=== PATIENT | female | born 1945 | race Caucasian/White ===

== ENCOUNTER 2018-04-06 22:33 | Emergency (ER) | payer MEDICARE, OTHER ==
[2018-04-06 23:22] LABS: BILIRUBIN,URINE NEGATIVE (NEG); CLARITY,URINE CLEAR; COLOR,URINE YELLOW; GLUCOSE,URINE NEGATIVE (NEG); NITRITE,URINE POSITIVE (NEG); PH,URINE 7.5; PROTEIN,URINE 30 mg/dL (NEG-TRACE); UROBILINOGEN,URINE 0.2 mg/dL (0.2 mg/dL)
[2018-04-06 23:31] LABS: BACTERIA,URINE MODERATE /HPF (0-FEW); RBC,URINE OCC /HPF (0-2)
[2018-04-07] MEDS: NITROFURANTOIN MONOHYD/M-CRYST 100 MG CAPSULE. PO (00:30)
== END 2018-04-07 02:15 | disposition home or self-care (01) ==
LOC: ER 04-07 02:15
DX: N39.0 Urinary tract infection, site not specified (principal); I10 Essential (primary) hypertension; K21.9 Gastro-esophageal reflux disease without esophagitis; J44.9 Chronic obstructive pulmonary disease, unspecified; E11.9 Type 2 diabetes mellitus without complications; E78.00 Pure hypercholesterolemia, unspecified; Z90.710 Acquired absence of both cervix and uterus; Z90.49 Acquired absence of other specified parts of digestive tract; Z93.1 Gastrostomy status; Z88.8 Allergy status to other drugs, medicaments and biological substances
CPT/HCPCS: 81001; 99284

== ENCOUNTER 2018-05-01 08:53 | Emergency (ER) | payer MEDICARE, OTHER | END 2018-05-01 10:25 | disposition short-term general hospital (02) | LOC: ER 08:53 | DX: J95.03 Malfunction of tracheostomy stoma (principal); J44.9 Chronic obstructive pulmonary disease, unspecified; K21.9 Gastro-esophageal reflux disease without esophagitis; I10 Essential (primary) hypertension; E78.00 Pure hypercholesterolemia, unspecified; E11.9 Type 2 diabetes mellitus without complications; Z90.49 Acquired absence of other specified parts of digestive tract; Z90.710 Acquired absence of both cervix and uterus; Z93.1 Gastrostomy status; E66.01 Morbid (severe) obesity due to excess calories; Z68.41 Body mass index [BMI] 40.0-44.9, adult; Z88.1 Allergy status to other antibiotic agents; Z88.8 Allergy status to other drugs, medicaments and biological substances; Z91.041 Radiographic dye allergy status; Y83.8 Other surgical procedures as the cause of abnormal reaction of the patient, or of later complication, without mention of misadventure at the time of the procedure; Y92.89 Other specified places as the place of occurrence of the external cause | CPT/HCPCS: 99285; 99285-25 ==

== ENCOUNTER 2018-05-01 10:39 | Emergency (ER) | payer MEDICARE, OTHER ==
[~2018-05-01] VITALS: Ht 162.6 cm; Wt 108.0 kg
[~2018-05-01 10:39] MED LIST: ALBU2.5V5 NEB; ATOR40TA59 PO; CARV3.122 PO; CLOP75TA57 PO; FLUT9.9S NS; GABA-585 PO; INSU100C SQ; INSU100I13 SQ; ISOS20TA4 PO; LEVO500T59 IV; MICO113C TP; NITR0.4T22 SL; NITR100C62 PO; PROPOFOL IV; QUET25TA5 PO; TEMA15CA PO; TRAM50TA PO; TRAZ-85 PO; VANC500V IV; VENL37.56 PO; VITA0.4T4 PO; [UNRECOGNIZED DRUG - CODE] IV
[2018-05-01 10:47] VITALS: BP 130/58
--- NOTE | 2018-05-01 10:52 | PHYS DOC ---
Past Medical History Past Medical History: Angina, Anxiety, COPD, Depression, Diabetes-Type II, Fibromyalgia, GERD, High Cholesterol, Hypertension, Other Additional Past Medical Histor: Morbid Obesity, Tracheostomy, Gastrostomy, Sleep Apnea, Encephalopathy, Past Surgical History: Cholecystectomy, , Hysterectomy Additional Past Surgical Histo: Tracheostomy, Gastrostomy, Naval removed, exploratory surgery Alcohol Use: None Drug Use: None Adult General Chief Complaint Chief Complaint: OTHER COMPLAINTS HPI HPI Patient is a 72 year old F who presents with displaced trach. She was initially transferred to [place] from our facility per her request. She was in the ambulance and requested that they turn around and come back. Now that she is here she states that she wants her trach replaced and she wants nothing else done. She does not even want to get off the ambulance stretcher. She wants to go back to the [facility]. Review of Systems Review of Systems does not cooperate All other systems were reviewed and found to be within normal limits, except as documented in this note. Current Medications Current Medications Current Medications Medications (Trade) Dose Ordered Sig/Jonn Start Time Stop Time Status Last Admin Dose Admin Albuterol Sulfate (Ventolin Neb Soln) 2.5 mg STK-MED ONCE 05/01/18 11:04 05/01/18 11:05 DC Prednisone (Prednisone) 60 mg 1X ONCE 05/01/18 11:30 05/01/18 11:31 DC 05/01/18 11:25 60 MG Allergies Allergies Allergies Coded Allergies Type Severity Reaction Last Updated Verified Cephalosporins Allergy Intermediate 12/10/17 Yes atropine Allergy Intermediate 12/10/17 Yes belladonna alkaloids Allergy Intermediate 12/10/17 Yes metformin Allergy Intermediate 12/10/17 Yes scopolamine Allergy Intermediate 12/10/17 Yes I S O L A T I O N *CONTACT* Allergy Unknown 03/25/18 Yes Physical Exam Physical Exam Constitutional: Well developed, well nourished, no acute distress, non-toxic appearance. HENT: Normocephalic, atraumatic, bilateral external ears normal, oropharynx moist, no oral exudates, nose normal. Eyes: PERRLA, EOMI, conjunctiva normal, no discharge. Neck: Normal range of motion, no tenderness, supple, no stridor. Cardiovascular:Heart rate regular rhythm, no murmur Lungs & Thorax: Bilateral breath sounds clear to auscultation Abdomen: Bowel sounds normal, soft, no tenderness, no masses, no pulsatile masses. Skin: Warm, dry, no erythema, no rash. Back: No tenderness, no CVA tenderness. Extremities: No tenderness, no cyanosis, no clubbing, ROM intact, no edema. Neurologic: Alert and oriented X 3, normal motor function, normal sensory function, no focal deficits noted. Current Patient Data Vital Signs Vital Signs Date Time Temp Pulse Resp B/P (MAP) Pulse Ox O2 Delivery O2 Flow Rate FiO2 05/01/18 10:47 97.9 82 22 130/58 (82) 95 Tracheal Collar 5.0 97.9 Radiology/Procedures Radiology/Procedures PATIENT: APOLINAR MARQUIS ACCOUNT: [id number] : 1945 LOCATION: ER AGE: 72 SEX: F EXAM STATUS: REG ER ORD. PHYSICIAN: DORY PERKINS MD REASON: dyspnea, trach replacement PROCEDURE: CHEST AP ONLY CHEST AP ONLY Clinical Indication: SOB, dyspnea, trach replacement Comparison: AP chest April 02, 2018. Findings: There is tracheostomy, tip is about 5.2 cm superior to the olivia. There is pneumomediastinum. Cardiac size is normal. Mild left basilar atelectasis or scarring. There is no pneumothorax. No pleural effusion is appreciated. Advanced degenerative arthropathy of the shoulders. IMPRESSION: 1. Pneumomediastinum. Finding probably iatrogenic if the tracheostomy is being manipulated. 2. Mild left basilar atelectasis or scarring. Electronically signed by: Alen Thomas MD (05/01/2018 11:26 AM) [id number] DICTATED and SIGNED BY: ALEN THOMAS MD DATE: 05/01/18 1123 PATIENT: APOLINAR MARQUIS ACCOUNT: [id number] : 1945 LOCATION: ER AGE: 72 SEX: F EXAM STATUS: DEP ER ORD. PHYSICIAN: DORY PERKINS MD REASON: re positioned trach placement PROCEDURE: CHEST AP ONLY Examination: Single frontal view of the chest HISTORY: History of tracheostomy repositioning COMPARISON: Same day exam and 50 7:00 AM FINDINGS: Examination is limited due to positioning. The tracheostomy tip appears to project within the right portion of the trachea just below the level of the clavicles. There is a streaky linear density identified in the mediastinum suspicious for pneumomediastinum. There is a large left-sided pneumothorax identified compressing the left lung. There is some shift of the mediastinum to the right. Soft tissue emphysema identified about the right neck region. IMPRESSION: 1. Large left-sided pneumothorax causing mild compression of the left lung. There is some shift of the mediastinum to the right. 2. Streaky densities identified in the mediastinum likely pneumomediastinum. Report was called to Dr. Perkins at time of dictation. Electronically signed by: Kevin House MD (05/01/2018 11:34 AM) [facility] Course & Med Decision Making Course & Med Decision Making Pertinent Labs and Imaging studies reviewed. (See chart for details) 72 y/o F presents for displaced trach, initially req txf to [place], she is awake , alert, oriented, capable to make these decisions. She is now willing to have her trach replaced here. However she does not even want to get off the ambulance stretcher, she wants to go back as soon as possible. Pt is yelling and cussing at staff. She requests discharge home. She declines any further workup. Trach replaced by RT. Fernando given. Pt discharged with EMS. Immediately after discharge radiology called to report ptx on her 2nd cxr. She had two xrays, the first xray read: pneumoediastinum likely related to trach manipulation, no pneumthorax. Second xray shows left ptx and pneumomediastinum. (see above for details). Pt was brought immediately back into the ED. Dragon Disclaimer Dragon Disclaimer This electronic medical record was generated, in whole or in part, using a voice recognition dictation system. Departure Departure Impression: Primary Impression: Chronic respiratory failure Disposition: 05 TRANSFER OTHER Condition: IMPROVED Referrals: JAIR MAHARAJ MD (PCP) DORY PERKINS MD May 01, 2018 10:52
[2018-05-01] MEDS ORDERED: ALBUTEROL SULFATE 2.5 MG/3 ML NEBU. ONE (11:04)
[2018-05-01] MEDS ORDERED: ALBUTEROL SULFATE 2.5 MG/3 ML NEBU. NEB ONE (11:15)
--- NOTE | 2018-05-01 11:29 | RAD ---
CHEST AP ONLY Clinical Indication: SOB, dyspnea, trach replacement Comparison: AP chest April 02, 2018. Findings: There is tracheostomy, tip is about 5.2 cm superior to the olivia. There is pneumomediastinum. Cardiac size is normal. Mild left basilar atelectasis or scarring. There is no pneumothorax. No pleural effusion is appreciated. Advanced degenerative arthropathy of the shoulders. IMPRESSION: 1. Pneumomediastinum. Finding probably iatrogenic if the tracheostomy is being manipulated. 2. Mild left basilar atelectasis or scarring. Electronically signed by: Alen Thoams MD (05/01/2018 11:26 AM) [id number]
[2018-05-01] MEDS ORDERED: predniSONE 20 MG TABLET PO ONE (11:30)
--- NOTE | 2018-05-01 11:38 | RAD ---
Examination: Single frontal view of the chest HISTORY: History of tracheostomy repositioning COMPARISON: Same day exam and 50 7:00 AM FINDINGS: Examination is limited due to positioning. The tracheostomy tip appears to project within the right portion of the trachea just below the level of the clavicles. There is a streaky linear density identified in the mediastinum suspicious for pneumomediastinum. There is a large left-sided pneumothorax identified compressing the left lung. There is some shift of the mediastinum to the right. Soft tissue emphysema identified about the right neck region. IMPRESSION: 1. Large left-sided pneumothorax causing mild compression of the left lung. There is some shift of the mediastinum to the right. 2. Streaky densities identified in the mediastinum likely pneumomediastinum. Report was called to Dr. Kaufman at time of dictation. Electronically signed by: Kevin House MD (05/01/2018 11:34 AM) [facility]
[2018-05-01] MEDS ORDERED: OMEP20TA63 PO (15:49)
[2018-05-01] MEDS ORDERED: MICO45CR VG (15:49)
[2018-05-01] MEDS ORDERED: POLY17PO29 PO (15:49)
[2018-05-01] MEDS ORDERED: ZOLP6.252 PO (15:49)
[2018-05-01] MEDS ORDERED: ATOR40TA59 PO (15:49)
[2018-05-01] MEDS ORDERED: ACET325S PEG (15:49)
[2018-05-01] MEDS ORDERED: ISOS20TA4 PO (15:49)
[2018-05-01] MEDS ORDERED: QUET25TA5 PO (15:49)
[2018-05-01] MEDS ORDERED: CLOP75TA PO (15:49)
[2018-05-01] MEDS ORDERED: LORA0.5T PO (15:49)
[2018-05-01] MEDS ORDERED: NYST15CR2 TP (15:49)
[2018-05-01] MEDS ORDERED: DOCU100C28 PEG (15:49)
[2018-05-01] MEDS ORDERED: TRAM50TA PO (15:49)
[2018-05-01] MEDS ORDERED: DICL100G18 TP (15:49)
[2018-05-01] MEDS ORDERED: NITR0.3T5 SL (15:49)
[2018-05-01] MEDS ORDERED: GABA-585 PO (15:49)
[2018-05-01] MEDS ORDERED: CARV3.122 PO (15:49)
[2018-05-01] MEDS ORDERED: INSU100I13 SQ (15:49)
[2018-05-01] MEDS ORDERED: VENL75TA PO (15:49)
[2018-05-01] MEDS ORDERED: GUAI473L15 PO (15:49)
== END 2018-05-01 11:31 | disposition short-term general hospital (02) ==
LOC: ER 10:39
DX: J95.03 Malfunction of tracheostomy stoma (principal); I10 Essential (primary) hypertension; E78.00 Pure hypercholesterolemia, unspecified; E11.9 Type 2 diabetes mellitus without complications; J44.9 Chronic obstructive pulmonary disease, unspecified; K21.9 Gastro-esophageal reflux disease without esophagitis; Z93.1 Gastrostomy status; Z88.5 Allergy status to narcotic agent; Z91.041 Radiographic dye allergy status; Z88.8 Allergy status to other drugs, medicaments and biological substances; Y84.8 Other medical procedures as the cause of abnormal reaction of the patient, or of later complication, without mention of misadventure at the time of the procedure; Y82.8 Other medical devices associated with adverse incidents; Y92.89 Other specified places as the place of occurrence of the external cause
CPT/HCPCS: 99285; J7512; J7613; 31502; 71045; 94640

== ENCOUNTER 2018-05-01 11:39 | Inpatient (IN) | payer MEDICARE, OTHER ==
[~2018-05-01] VITALS: Ht 162.6 cm; Wt 118.8 kg
[2018-05-01] VITALS (9 sets, daily range): BP systolic 99–140; BP diastolic 48–78
--- NOTE | 2018-05-01 11:47 | PHYS DOC ---
Past Medical History Past Medical History: Angina, Anxiety, COPD, Depression, Diabetes-Type II, Fibromyalgia, GERD, High Cholesterol, Hypertension, Other Additional Past Medical Histor: Morbid Obesity, Tracheostomy, Gastrostomy, Sleep Apnea, Encephalopathy, Past Surgical History: Cholecystectomy, , Hysterectomy Additional Past Surgical Histo: Tracheostomy, Gastrostomy, Naval removed, exploratory surgery Alcohol Use: None Drug Use: None Adult General HPI HPI Patient is a 72 year old female who presents for left pneumothorax. Pt was initially here and requested transfer to [place] and then returned to the ER. She had her trach replaced and a chest xray was done. She was discharged back to [place] (per her request, she refused further treatment) and then second chest xray was reviewed and showed a left pneumothorax. Pt complains of back pain. Denies distress. Review of Systems Review of Systems Constitutional: Denies fever or chills Eyes: Denies change in visual acuity, redness, or eye pain HENT: Denies nasal congestion or sore throat Respiratory: Denies cough or shortness of breath Cardiovascular: No additional information not addressed in HPI GI: Denies abdominal pain, nausea, vomiting, bloody stools or diarrhea : Denies dysuria or hematuria Musculoskeletal: Denies back pain or joint pain Integument: Denies rash or skin lesions Neurologic: Denies headache, focal weakness or sensory changes All other systems were reviewed and found to be within normal limits, except as documented in this note. Current Medications Current Medications Allergies Allergies Allergies Coded Allergies Type Severity Reaction Last Updated Verified Cephalosporins Allergy Intermediate 12/10/17 Yes atropine Allergy Intermediate 12/10/17 Yes belladonna alkaloids Allergy Intermediate 12/10/17 Yes metformin Allergy Intermediate 12/10/17 Yes scopolamine Allergy Intermediate 12/10/17 Yes I S O L A T I O N *CONTACT* Allergy Unknown 03/25/18 Yes Physical Exam Physical Exam Constitutional: Well developed, well nourished, no acute distress, non-toxic appearance. HENT: Normocephalic, atraumatic, bilateral external ears normal, oropharynx moist, no oral exudates, nose normal. Eyes: PERRLA, EOMI, conjunctiva normal, no discharge. Neck: Normal range of motion, no tenderness, supple, no stridor. Cardiovascular:Heart rate regular rhythm, no murmur Lungs & Thorax: Bilateral breath sounds clear to auscultation Abdomen: Bowel sounds normal, soft, no tenderness, no masses, no pulsatile masses. Skin: Warm, dry, no erythema, no rash. Back: No tenderness, no CVA tenderness. Extremities: No tenderness, no cyanosis, no clubbing, ROM intact, no edema. Neurologic: Alert and oriented X 3, normal motor function, normal sensory function, no focal deficits noted. Radiology/Procedures Radiology/Procedures PATIENT: APOLINAR MARQUIS ACCOUNT: [id number] : 1945 LOCATION: ER AGE: 72 SEX: F EXAM STATUS: DEP ER ORD. PHYSICIAN: DORY PERKINS MD REASON: re positioned trach placement PROCEDURE: CHEST AP ONLY Examination: Single frontal view of the chest HISTORY: History of tracheostomy repositioning COMPARISON: Same day exam and 50 7:00 AM FINDINGS: Examination is limited due to positioning. The tracheostomy tip appears to project within the right portion of the trachea just below the level of the clavicles. There is a streaky linear density identified in the mediastinum suspicious for pneumomediastinum. There is a large left-sided pneumothorax identified compressing the left lung. There is some shift of the mediastinum to the right. Soft tissue emphysema identified about the right neck region. IMPRESSION: 1. Large left-sided pneumothorax causing mild compression of the left lung. There is some shift of the mediastinum to the right. 2. Streaky densities identified in the mediastinum likely pneumomediastinum. Report was called to Dr. Perkins at time of dictation. Electronically signed by: Kevin House MD (05/01/2018 11:34 AM) [facility] Course & Med Decision Making Course & Med Decision Making Pertinent Labs and Imaging studies reviewed. (See chart for details) 72 y/o F presents for left ptx after trach replacement earlier. Pt had two xrays prior to discharge within 10 minutes, the first xray showed pneumomediastinum but was neg for ptx, second showed ptx. See xray read above. Pt was breathing against a slightly closed airway and refused trach placement for a prolonged period of time earlier and this is likely the cause of ptx. Her trach was replaced with some resistance by RT within the last hour. I consulted Dr. Serrano who agrees with evaluation and plan for chest tube. I discussed with Dr. Serrano the patient's history, physical exam, presentation, events of today, and imaging results; I also expressed my concern for tracheal perforation vs false tract. Xray does confirm tracheostomy tube within the trachea. He will evaluate the patient. Admit to ICU. Consulted Dr. Mast with [facility] for chest tube. Pt is in no distress, she is speaking clearly and in full sentences, she has no shortness of breath. She really has no complaints except her blankets are too heavy. Fentanyl ordered for patients chronic back and leg pain. I discussed results with patient and explained the need for a chest tube and admission. She verbalizes understanding. Dragon Disclaimer Dragon Disclaimer This electronic medical record was generated, in whole or in part, using a voice recognition dictation system. Departure Departure Referrals: JAIR MAHARAJ MD (PCP) DORY PERKINS MD May 01, 2018 11:47
[2018-05-01] MEDS ORDERED: ONDANSETRON PF 4 MG/2 ML VIAL. IV PRN (12:00)
[2018-05-01] MEDS ORDERED: fentaNYL PF VIAL 100 MCG/2 ML VIAL IM ONE (12:15)
[2018-05-01] MEDS ORDERED: ONDANSETRON PF 4 MG/2 ML VIAL. IV ONE (12:15)
[2018-05-01] MEDS ORDERED: LIDOCAINE WITH 8.4% SOD BICARB 3 ML DISP.SYRIN. ONE (12:34)
[2018-05-01] MEDS ORDERED: fentaNYL PF VIAL 100 MCG/2 ML VIAL IV ONE ×2 (12:45→15:00)
[2018-05-01] MEDS ORDERED: LIDOCAINE WITH 8.4% SOD BICARB 3 ML DISP.SYRIN. INJ ONE (14:15)
[2018-05-01 14:17] LABS: BASE EXCESS ABG -2 mmol/L (-3-3); HCO3 ABG 25 mmol/L (21-28); PCO2 ABG 51 mmHg (35-46); PO2 ABG 113 mmHg (65-108); SAT O2 ABG 97 % (92-99)
[2018-05-01 14:21] LABS: FIO2 ABG 36
--- NOTE | 2018-05-01 14:26 | PDOC ---
BRIEF OPERATIVE NOTE Pre-Op Diagnosis left pneumothorax Post-Op Diagnosis bilateral pnemothoraces, pneumomediastinum, malpositioned tracheostomy tube Procedure Performed CT left chest tube Surgeon Tarun Anesthesia Type: Local Findings 10F left chest tube. 1L air evacuated. Tracheostomy tube noted to be malpositioned into the anterior mediastinum. Pulmonary notify immediately Complications No immediate SHERRON SIMMONS MD May 01, 2018 14:26
--- NOTE | 2018-05-01 14:33 | RAD ---
Examination: Single frontal view the chest HISTORY: History of tracheostomy removal COMPARISON: 11:08 AM FINDINGS: Interval removal of tracheostomy tube. Pneumomediastinum is again identified. Soft tissue air identified in the neck and chest wall on the right identified. Left-sided pleural catheter is identified. There is interval decrease in left-sided pneumothorax.. Bibasilar lung airspace opacities likely atelectasis or infiltrates. IMPRESSION: 1. Interval placement of left-sided pleural catheter with decreased left pneumothorax. 2. Interval removal of tracheostomy tube. Pneumomediastinum is again identified. 3. Soft tissue emphysema identified in the neck and chest wall region. 4. Bibasilar linear airspace opacities likely atelectasis or infiltrates. Electronically signed by: Kevin House MD (05/01/2018 2:30 PM) [facility]
--- NOTE | 2018-05-01 15:02 | CONS ---
DATE OF CONSULTATION: 05/01/2018 ATTENDING PHYSICIAN: Dr. Stevens. REASON FOR CONSULTATION: Respiratory failure, dislodged tracheostomy tube, bilateral pneumothorax and pneumomediastinum. 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 She was brought into the Emergency Room earlier today after her tracheostomy tube was dislodged. She had no difficulty in breathing. The patient was adamant at not being seen by [facility] and wanted to be transferred to [facility]. In the ER, an attempt was made to replace the tracheostomy. Initially they did not have the Bivona trach and then a Shiley was placed. According to the respiratory therapist's note, they had to put more force to get the tracheostomy tube in. The patient was then transferred to [facility] per her request. However, during route she became more short of breath and as a result she was brought back by ambulance to our ER. A chest x-ray at that time was performed, in fact there were two x-rays and one of them showed a small left lower lobe pneumothorax and the second one was a moderate increase in the size of the pneumothorax. At that time, the ER physician had called me about the consult. I informed them that she would need a chest tube. They referred to IR for placement of the chest tube. I got a stat page from interventional suite that her tracheostomy tube was in the mediastinum and I looked at the CT chest and she had bilateral pneumothorax, more on the left than on the right. She has pneumomediastinum and her tracheostomy tube was in the mediastinum. I immediately arrived. I also called Dr. Hyatt, who is our thoracic surgeon, who immediately arrived as well to see if her trach needs to be replaced. However, we quickly did a bedside assessment and did not feel that she had any tracheal tear. The pneumomediastinum was likely caused by tracheostomy insertion in a false lumen. At that time, we decided that she would benefit from removal of the trach and she would not need any intervention for airway as she clinically seems to be stable. She did tolerate the removal of the trach well when we observed her and at that time from the IR suite we transferred her to ICU. A chest x-ray was reviewed by me after chest tube placement and the pneumothorax has significantly improved on the left side. PAST MEDICAL HISTORY: Significant for history of angina, anxiety, COPD, depression, type 2 diabetes, fibromyalgia, GERD, dyslipidemia, hypertension, history of prior cardiac arrest, history of cognitive dysfunction in the past. PAST SURGICAL HISTORY: Tracheostomy and gastrostomy tube. Cholecystectomy, and hysterectomy. ALLERGIES: CEPHALOSPORINS, ATROPINE, BELLADONNA, ALKALOIDS, METFORMIN AND SCOPOLAMINE. REVIEW OF SYSTEMS: Limited, but I obtained much of the history at the bedside. She has no recent cough, no chest pain, no headaches. No blurring of vision. No nausea, vomiting, no diarrhea. No dysuria. No skin rash. No focal weakness. MEDICATIONS: The medications given in the ER were reviewed as well. SOCIAL HISTORY: She smoked for about 25+ years, but quit 20 years ago. PHYSICAL EXAMINATION: GENERAL: After removal of the trach and placing on nasal cannula she appeared to be very comfortable. In no obvious respiratory distress. VITAL SIGNS: Blood pressure 130/58, pulse ox 95% on 5 liters. NECK: Supple. LUNGS: With diminished breath sounds bilaterally, but no crackles or any subQ air. CARDIOVASCULAR: Regular rate and rhythm. ABDOMEN: Soft, obese. EXTREMITIES: With trace pitting edema. LABORATORY DATA: Labs have been ordered and are not back yet. ABG has also been ordered. She is a chronic hypercapnic patient. IMPRESSION: 1. Acute on chronic respiratory failure from dislodgement of the tracheostomy tube and reinsertion of tracheostomy tube in the mediastinum with subsequent removal. 2. Bilateral pneumothorax, mostly on the left side and a very tiny one on the right side along with pneumomediastinum and subcutaneous emphysema related to above complication. 3. Underlying chronic obstructive pulmonary disease with chronic respiratory failure. 4. Morbid obesity. 5. Dyslipidemia. 6. Gastroesophageal reflux disease. RECOMMENDATIONS: 1. I discussed with the ER physician, discussed with Dr. Hyatt, Thoracic Surgery, and interventional radiologist. At this time, we have decannulated her and the stoma will close in the next 48-72 hours. We will watch her closely while on nasal cannula. She seems to be tolerating it well. 2. Continue chest tube to suction and monitor daily chest x-rays. 3. Obtain ABGs to assess for ventilatory status and avoid hyperoxia. She is a chronic hypercapnic patient. 4. Minimize narcotics. 5. Add bronchodilators. 6. Add Lovenox for deep venous thrombosis prophylaxis. 7. We will follow along with you while in the ICU. Critical care time: 40 minutes. ANGELA ARRIOLA MD DR: GRIFFIN/brennon JOB#: [id number] / [id number] PUSHPA
[2018-05-01] MEDS ORDERED: NITR0.3T5 SL (15:49)
[2018-05-01] MEDS ORDERED: LORA0.5T PO (15:49)
[2018-05-01] MEDS ORDERED: VENL75TA PO (15:49)
[2018-05-01] MEDS ORDERED: ACET325S PEG (15:49)
[2018-05-01] MEDS ORDERED: TRAM50TA PO (15:49)
[2018-05-01] MEDS ORDERED: CLOP75TA PO (15:49)
[2018-05-01] MEDS ORDERED: QUET25TA5 PO (15:49)
[2018-05-01] MEDS ORDERED: NYST15CR2 TP (15:49)
[2018-05-01] MEDS ORDERED: MICO45CR VG (15:49)
[2018-05-01] MEDS ORDERED: DICL100G18 TP (15:49)
[2018-05-01] MEDS ORDERED: ZOLP6.252 PO (15:49)
[2018-05-01] MEDS ORDERED: DOCU100C28 PEG (15:49)
[2018-05-01] MEDS ORDERED: POLY17PO29 PO (15:49)
[2018-05-01] MEDS ORDERED: CARV3.122 PO (15:49)
[2018-05-01] MEDS ORDERED: OMEP20TA63 PO (15:49)
[2018-05-01] MEDS ORDERED: GABA-585 PO (15:49)
[2018-05-01] MEDS ORDERED: ATOR40TA59 PO (15:49)
[2018-05-01] MEDS ORDERED: ISOS20TA4 PO (15:49)
[2018-05-01] MEDS ORDERED: GUAI473L15 PO (15:49)
[2018-05-01] MEDS ORDERED: INSU100I13 SQ (15:49)
[2018-05-01 15:52] LABS: BASO % 0 % (0-3); EOS % 0 % (0-3); HEMATOCRIT 35.5 % (36.0-47.0); HEMOGLOBIN 11.6 g/dL (12.0-15.5); LYMPH # 0.5 x10^3/uL (1.0-4.8); LYMPH % 5 % (24-48); MEAN CORPUSCULAR HEMOGLOBIN 31 pg (25-35); MEAN CORPUSCULAR HGB CONC 33 g/dL (31-37); MEAN CORPUSCULAR VOLUME 93 fL (79-100); MONO # 0.1 x10^3/uL (0.0-1.1); MONO % 1 % (0-9); NEUT # 11.2 x10^3uL (1.8-7.7); NEUT % 95 % (31-73); PLATELET COUNT 400 x10^3/uL (140-400); RED CELL DISTRIBUTION WIDTH 15.1 % (11.5-14.5); WHITE BLOOD COUNT 11.9 x10^3/uL (4.0-11.0)
[2018-05-01] MEDS: IPRATRPIUM/ALBUTEROL 0.5/2.5MG 3 ML NEBU. NEB SCH ×2 (15:53→19:32)
[2018-05-01] MEDS ORDERED: DEXTROSE 50% 25 GM / 50ML DISP.SYRIN. IV PRN (16:15)
[2018-05-01 16:16] LABS: ALBUMIN 3.1 g/dL (3.4-5.0); ALBUMIN/GLOBULIN RATIO 0.7 (1.0-1.7); CALCIUM 9.9 mg/dL (8.5-10.1); CREATININE 1.1 mg/dL (0.6-1.0); POTASSIUM 4.5 mmol/L (3.5-5.1); TOTAL BILIRUBIN 0.5 mg/dL (0.2-1.0); TOTAL PROTEIN 7.5 g/dL (6.4-8.2)
[2018-05-01 16:22] LABS: % BANDS 1 % (0-9); % LYMPHS 7 % (24-48); % MONOS 1 % (0-10); % SEGS 91 % (35-66)
[2018-05-01 16:23] LABS: PLT ESTIMATE ADEQUATE (ADEQUATE); POLYCHROMASIA SLIGHT
--- NOTE | 2018-05-01 16:28 | RAD ---
Procedure: CT-guided chest tube placement Clinical Indication: Adult female with bilateral pneumothoraces, left greater than right, pneumomediastinum, status post tracheostomy replacement in the ER. Sedation: Local anesthesia only Antibiotics: None Contrast: None Sterility: The procedure was performed in its entirety using appropriate elements of sterile technique. Consent: The procedure was explained in its entirety to the patient or the patients designated international representative by a member of the treatment team, including a discussion of the risks, benefits and commonly accepted alternatives to the procedure, as well as the expected consequences of no therapy whatsoever. Discussion of the risks included, but was not limited to, those that are most frequent and those that are rare but possibly severe or life-threatening, as well as the possibility of unforeseen complications. Technique and Findings: Following informed consent, the patient was prepped and draped in usual sterile fashion. Preliminary CT scan of the area of interest was performed. 1% lidocaine was used to achieve local anesthesia over the second intercostal space on the left. A small dermatotomy was made. A 19-gauge needle guide was advanced into the pleural space and was exchanged over wire for 10 [place] pigtail drainage catheter. This was used to aspirate 1 L of air from the pleural space. The chest tube was sutured to the skin and placed to Pleur-evac drainage. Postprocedural CT scan confirmed good position of the chest tube, and also confirmed malposition of the tracheostomy tube within the anterior mediastinum. Due to the patient's respiratory distress, the crew director and respiratory therapist were immediately involved and the patient was readily stabilized. Complications: No immediate Impression: 1. CT-guided left chest tube placement with evacuation of 1 L of air as described. 2. Incidental note of malposition of a tracheostomy tube. This was promptly addressed by the crew director and respiratory therapist. PQRS Compliance Statement: One or more of the following individualized dose reduction techniques were utilized for this examination: 1. Automated exposure control 2. Adjustment of the mA and/or kV according to patient size 3. Use of iterative reconstruction technique
[2018-05-01] MEDS ORDERED: NITROGLYCERIN SUBLINGUAL 0.4 MG BOTTLE OF 25. SL SCH (16:30)
[2018-05-01] MEDS ORDERED: TEMAZEPAM 15 MG CAPSULE PO PRN (16:30)
[2018-05-01] MEDS ORDERED: DICLOFENAC SODIUM 1% TOPICAL GEL 100GM TUBE. TP PRN (16:30)
[2018-05-01] MEDS ORDERED: ALBUTEROL SULFATE 2.5 MG/3 ML NEBU. NEB SCH (17:00)
[2018-05-01] MEDS: DOCUSATE SODIUM 100 MG CAPSULE. PO SCH (17:00)
[2018-05-01] MEDS: CARVEDILOL 3.125 MG TABLET. PO SCH (17:27)
[2018-05-01] MEDS: LORazepam 0.5 MG TABLET PO PRN (17:27)
[2018-05-01] MEDS: traMADol 50 MG TABLET PO PRN (17:27)
[2018-05-01] MEDS: MORPHINE SULFATE 4 MG/ML VIAL. IV PRN (18:23)
[2018-05-01] MEDS: INSULIN LISPRO 300 UNITS/3 ML INSULN.PEN. SQ SCH (18:28)
[2018-05-01] MEDS ORDERED: VENLAFAXINE 75 MG TABLET. ONE (21:00)
[2018-05-01] MEDS ORDERED: ATORVASTATIN CALCIUM 40 MG TABLET. PO SCH (21:00)
[2018-05-01] MEDS ORDERED: NON FORMULARY ITEM (Quetiapine Fumarate (Seroquel) 1 TAB) PO SCH (21:00)
[2018-05-01] MEDS: GABAPENTIN 100 MG CAPSULE. PO SCH (21:21)
[2018-05-01] MEDS: traZODone 50 MG TABLET. PO SCH (21:22)
[2018-05-01] MEDS: VENLAFAXINE 75 MG TABLET. PO SCH (21:22)
[2018-05-01] MEDS: TRIAMCINOLONE ACETONIDE 0.1% TOPICAL CREAM 15GM TUBE. TP SCH (21:23)
[2018-05-01] MEDS: NYSTATIN 100,000 UNIT/GM TOPICAL CREAM 15GM TUBE. TP SCH (21:24)
[2018-05-01] MEDS: INSULIN GLARGINE 300 UNITS/3 ML INSULN.PEN. SQ SCH (21:26)
[2018-05-01] MEDS: ZOLPIDEM 5 MG TABLET. PO SCH (21:28)
[2018-05-01] MEDS: ATORVASTATIN CALCIUM 40 MG TABLET. PO SCH (21:29)
[2018-05-01] MEDS: QUEtiapine 25 MG TABLET. PO SCH (21:29)
[2018-05-02] VITALS (15 sets, daily range): BP systolic 85–137; BP diastolic 42–65
[2018-05-02] MEDS: INSULIN LISPRO 300 UNITS/3 ML INSULN.PEN. SQ SCH ×3 (08:00→17:00)
[2018-05-02] MEDS: CARVEDILOL 3.125 MG TABLET. PO SCH ×2 (08:00→17:00)
--- NOTE | 2018-05-02 08:05 | RAD ---
Portable chest, 05/02/2018: HISTORY: Follow-up chest tube Comparison is made to yesterday's study. A pigtail pleural drain remains in place on the left no definite residual pneumothorax is seen. The heart size is unchanged. There are worsening moderate bibasilar opacities compatible with atelectasis. No definite pleural fluid is seen. Subcutaneous emphysema in the lower neck and right axilla has regressed. IMPRESSION: 1. No evidence of residual pneumothorax. 2. Worsening moderate bibasilar opacities compatible with atelectasis. Electronically signed by: Delvin Hunt MD (05/02/2018 8:01 AM) [facility]
[2018-05-02] MEDS ORDERED: VENLAFAXINE 75 MG TABLET. ONE (09:00)
[2018-05-02] MEDS ORDERED: ISOSORBIDE DINITRATE 20 MG PO SCH (09:00)
[2018-05-02] MEDS: ISOSORBIDE DINITRATE 10 MG TABLET. PO SCH (09:00)
[2018-05-02] MEDS: NYSTATIN 100,000 UNIT/GM TOPICAL CREAM 15GM TUBE. TP SCH ×2 (09:00→21:53)
[2018-05-02] MEDS: IPRATRPIUM/ALBUTEROL 0.5/2.5MG 3 ML NEBU. NEB SCH ×4 (09:02→20:23)
[2018-05-02] MEDS: DOCUSATE SODIUM 100 MG CAPSULE. PO SCH (09:18)
[2018-05-02] MEDS: POLYETHYLENE GLYCOL 3350 17 GM PACKET. PO SCH (09:18)
[2018-05-02] MEDS: CLOPIDOGREL BISULFATE 75 MG TABLET PO SCH (09:18)
[2018-05-02] MEDS: VENLAFAXINE 75 MG TABLET. PO SCH ×3 (09:18→21:35)
[2018-05-02] MEDS: PANTOPRAZOLE 40 MG TABLET.DR. PO SCH (09:21)
[2018-05-02] MEDS: GABAPENTIN 100 MG CAPSULE. PO SCH ×3 (09:21→21:35)
[2018-05-02] MEDS: TRIAMCINOLONE ACETONIDE 0.1% TOPICAL CREAM 15GM TUBE. TP SCH ×2 (09:22→21:53)
[2018-05-02] MEDS: INSULIN GLARGINE 300 UNITS/3 ML INSULN.PEN. SQ SCH ×2 (09:41→21:52)
[2018-05-02] MEDS ORDERED: IV NORMAL SALINE 500ML BAG 500 ML IV ONE (10:30)
--- NOTE | 2018-05-02 10:31 | PDOC ---
PULMONARY PROGRESS NOTES Subjective NO ULICES Vitals Vital Signs Date Time Temp Pulse Resp B/P (MAP) Pulse Ox O2 Delivery O2 Flow Rate FiO2 05/02/18 10:00 66 12 85/58 (67) 100 Nasal Cannula 2.0 05/02/18 08:00 98.0 98.0 General: Alert, No acute distress Lungs: Clear Cardiovascular: S1 Abdomen: Soft Neuro Exam: Alert Extremities: Other (TRACE EDEMA) Skin: Warm Labs Laboratory Tests Test 05/01/18 14:00 05/01/18 14:10 05/01/18 15:40 05/01/18 18:24 Nasal Screen MRSA (PCR) Negative (Negative) O2 Saturation 97 % (92-99) Arterial Blood pH 7.31 (7.35-7.45) Arterial Blood pCO2 at Patient Temp 51 mmHg (35-46) Arterial Blood pO2 at Patient Temp 113 mmHg (65-108) Arterial Blood HCO3 25 mmol/L (21-28) Arterial Blood Base Excess -2 mmol/L (-3-3) FiO2 36 White Blood Count 11.9 x10^3/uL (4.0-11.0) Red Blood Count 3.80 x10^6/uL (3.50-5.40) Hemoglobin 11.6 g/dL (12.0-15.5) Hematocrit 35.5 % (36.0-47.0) Mean Corpuscular Volume 93 fL (79-100) Mean Corpuscular Hemoglobin 31 pg (25-35) Mean Corpuscular Hemoglobin Concent 33 g/dL (31-37) Red Cell Distribution Width 15.1 % (11.5-14.5) Platelet Count 400 x10^3/uL (140-400) Neutrophils (%) (Auto) 95 % (31-73) Lymphocytes (%) (Auto) 5 % (24-48) Monocytes (%) (Auto) 1 % (0-9) Eosinophils (%) (Auto) 0 % (0-3) Basophils (%) (Auto) 0 % (0-3) Neutrophils # (Auto) 11.2 x10^3uL (1.8-7.7) Lymphocytes # (Auto) 0.5 x10^3/uL (1.0-4.8) Monocytes # (Auto) 0.1 x10^3/uL (0.0-1.1) Eosinophils # (Auto) 0.0 x10^3/uL (0.0-0.7) Basophils # (Auto) 0.0 x10^3/uL (0.0-0.2) Segmented Neutrophils % 91 % (35-66) Band Neutrophils % 1 % (0-9) Lymphocytes % 7 % (24-48) Monocytes % 1 % (0-10) Platelet Estimate Adequate (ADEQUATE) Polychromasia Slight Sodium Level 138 mmol/L (136-145) Potassium Level 4.5 mmol/L (3.5-5.1) Chloride Level 102 mmol/L (98-107) Carbon Dioxide Level 27 mmol/L (21-32) Anion Gap 9 (6-14) Blood Urea Nitrogen 12 mg/dL (7-20) Creatinine 1.1 mg/dL (0.6-1.0) Estimated GFR (Cockcroft-Gault) 49.0 BUN/Creatinine Ratio 11 (6-20) Glucose Level 229 mg/dL (70-99) Calcium Level 9.9 mg/dL (8.5-10.1) Total Bilirubin 0.5 mg/dL (0.2-1.0) Aspartate Amino Transf (AST/SGOT) 13 U/L (15-37) Alanine Aminotransferase (ALT/SGPT) 17 U/L (14-59) Alkaline Phosphatase 131 U/L (46-116) Troponin I Quantitative < 0.017 ng/mL (0.000-0.055) SG-Eju-U-Type Natriuretic Peptide 460 pg/mL (0-124) Total Protein 7.5 g/dL (6.4-8.2) Albumin 3.1 g/dL (3.4-5.0) Albumin/Globulin Ratio 0.7 (1.0-1.7) Glucose (Fingerstick) 213 mg/dL (70-99) Test 05/01/18 21:07 Glucose (Fingerstick) 208 mg/dL (70-99) Laboratory Tests Test 05/01/18 14:00 05/01/18 14:10 05/01/18 15:40 05/01/18 18:24 Nasal Screen MRSA (PCR) Negative (Negative) O2 Saturation 97 % (92-99) Arterial Blood pH 7.31 (7.35-7.45) Arterial Blood pCO2 at Patient Temp 51 mmHg (35-46) Arterial Blood pO2 at Patient Temp 113 mmHg (65-108) Arterial Blood HCO3 25 mmol/L (21-28) Arterial Blood Base Excess -2 mmol/L (-3-3) FiO2 36 White Blood Count 11.9 x10^3/uL (4.0-11.0) Red Blood Count 3.80 x10^6/uL (3.50-5.40) Hemoglobin 11.6 g/dL (12.0-15.5) Hematocrit 35.5 % (36.0-47.0) Mean Corpuscular Volume 93 fL (79-100) Mean Corpuscular Hemoglobin 31 pg (25-35) Mean Corpuscular Hemoglobin Concent 33 g/dL (31-37) Red Cell Distribution Width 15.1 % (11.5-14.5) Platelet Count 400 x10^3/uL (140-400) Neutrophils (%) (Auto) 95 % (31-73) Lymphocytes (%) (Auto) 5 % (24-48) Monocytes (%) (Auto) 1 % (0-9) Eosinophils (%) (Auto) 0 % (0-3) Basophils (%) (Auto) 0 % (0-3) Neutrophils # (Auto) 11.2 x10^3uL (1.8-7.7) Lymphocytes # (Auto) 0.5 x10^3/uL (1.0-4.8) Monocytes # (Auto) 0.1 x10^3/uL (0.0-1.1) Eosinophils # (Auto) 0.0 x10^3/uL (0.0-0.7) Basophils # (Auto) 0.0 x10^3/uL (0.0-0.2) Segmented Neutrophils % 91 % (35-66) Band Neutrophils % 1 % (0-9) Lymphocytes % 7 % (24-48) Monocytes % 1 % (0-10) Platelet Estimate Adequate (ADEQUATE) Polychromasia Slight Sodium Level 138 mmol/L (136-145) Potassium Level 4.5 mmol/L (3.5-5.1) Chloride Level 102 mmol/L (98-107) Carbon Dioxide Level 27 mmol/L (21-32) Anion Gap 9 (6-14) Blood Urea Nitrogen 12 mg/dL (7-20) Creatinine 1.1 mg/dL (0.6-1.0) Estimated GFR (Cockcroft-Gault) 49.0 BUN/Creatinine Ratio 11 (6-20) Glucose Level 229 mg/dL (70-99) Calcium Level 9.9 mg/dL (8.5-10.1) Total Bilirubin 0.5 mg/dL (0.2-1.0) Aspartate Amino Transf (AST/SGOT) 13 U/L (15-37) Alanine Aminotransferase (ALT/SGPT) 17 U/L (14-59) Alkaline Phosphatase 131 U/L (46-116) Troponin I Quantitative < 0.017 ng/mL (0.000-0.055) YG-Fjf-S-Type Natriuretic Peptide 460 pg/mL (0-124) Total Protein 7.5 g/dL (6.4-8.2) Albumin 3.1 g/dL (3.4-5.0) Albumin/Globulin Ratio 0.7 (1.0-1.7) Glucose (Fingerstick) 213 mg/dL (70-99) Test 05/01/18 21:07 Glucose (Fingerstick) 208 mg/dL (70-99) Medications Active Scripts Medications Dose Route/Sig Max Daily Dose Days Date Category Voltaren (Diclofenac Sodium) 100 Gm Gel..gram. 1 Gm TP QID PRN 05/01/18 Reported Venlafaxine Hcl 75 Mg Tablet 1 Tab PO DAILY 05/01/18 Reported Tramadol Hcl 50 Mg Tablet 50 Mg PO DAILY PRN 05/01/18 Reported Seroquel (Quetiapine Fumarate) 25 Mg Tablet 1 Tab PO QHS 05/01/18 Reported Prilosec Otc (Omeprazole Magnesium) 20 Mg Tablet.dr 1 Tab PO DAILY 05/01/18 Reported Nystatin-Triamcinolone Cream (Nystatin/Triamcin) 15 Gm Cream..g. 1 Cresencio TP BID 05/01/18 Reported Nitroglycerin 0.3 Mg Tab.subl 0.3 Mg SL 05/01/18 Reported Miralax (Polyethylene Glycol 3350) 17 Gm Powd.pack 1 Packet PO DAILY 05/01/18 Reported Miconazole 7 (Miconazole Nitrate) 45 Gm Cream.appl 45 Gm VG BID 05/01/18 Reported Lorazepam 0.5 Mg Tablet 1 Tab PO Q4HRS PRN 05/01/18 Reported Lantus Solostar (Insulin Glargine,Hum.rec.anlog) 100 Unit/1 Ml Insuln.pen 40 Unit SQ BID 05/01/18 Reported Isosorbide Dinitrate 20 Mg Tablet 20 Mg PO DAILY 05/01/18 Reported Guaifenesin Ac Cough Syrup (Guaifenesin/Codeine Phosphate) 473 Ml Liquid 5 Ml PO Q4HRS 05/01/18 Reported Gabapentin 100 Mg Capsule 100 Mg PO TID 05/01/18 Reported Docusate Sodium 100 Mg Capsule 1 Ea PEG DAILY 05/01/18 Reported Clopidogrel (Clopidogrel Bisulfate) 75 Mg Tablet 1 Tab PO DAILY 05/01/18 Reported Carvedilol 3.125 Mg Tablet 1 Tab PO BID 05/01/18 Reported Atorvastatin Calcium 40 Mg Tablet 1 Tab PO DAILY 05/01/18 Reported Ambien Cr (Zolpidem Tartrate) 6.25 Mg Tab.mphase 1 Tab PO QHS 05/01/18 Reported Acetaminophen 325 Mg/10.15 Ml Solution 650 Mg PEG 05/01/18 Reported Macrobid 100 Mg Capsule (Nitrofurantoin Monohyd/M-Cryst) 100 Mg Capsule 1 Cap PO BID 04/07/18 Rx Levaquin (Levofloxacin) 500 Mg Tablet 750 Mg IV ONCE 12/10/17 Reported Seroquel (Quetiapine Fumarate) 25 Mg Tablet 25 Mg PO HS 12/10/17 Reported Venlafaxine Hcl 37.5 Mg Tablet 37.5 Mg PO TID 12/10/17 Reported Temazepam 15 Mg Capsule 15 Mg PO HS PRN 12/10/17 Reported Trazodone Hcl 50 Mg Tablet 50 Mg PO HS 12/10/17 Reported Isosorbide Dinitrate 20 Mg Tablet 20 Mg PO DAILY 12/10/17 Reported Plavix (Clopidogrel Bisulfate) 75 Mg Tablet 75 Mg PO DAILY 12/10/17 Reported Atorvastatin Calcium 40 Mg Tablet 40 Mg PO HS 12/10/17 Reported Tramadol Hcl 50 Mg Tablet 50 Mg PO Q6HRS PRN 12/10/17 Reported Gabapentin 100 Mg Capsule 100 Mg PO TID 12/10/17 Reported Carvedilol 3.125 Mg Tablet 3.125 Mg PO BIDWMEALS 12/10/17 Reported NITROGLYCERIN SubLingual (Nitroglycerin) 0.4 Mg Tab.subl 1 Tab SL UD 11/15/17 Reported Lantus Solostar (Insulin Glargine,Hum.rec.anlog) 100 Unit/1 Ml Insuln.pen 40 Unit SQ Q12HR 11/15/17 Reported Albuterol Sulfate Neb Soln (Albuterol Sulfate) 2.5 Mg/3 Ml Vial.neb 1 Vial NEB QID 11/15/17 Reported Humalog (Insulin Lispro) 100 Unit/1 Ml Cartridge 0 SQ Q6HRS 11/15/17 Reported Impression . 1. Acute on chronic respiratory failure from dislodgement of the tracheostomy tube and reinsertion of tracheostomy tube in the mediastinum with subsequent removal. 2. Bilateral pneumothorax, mostly on the left side and a very tiny one on the right side along with pneumomediastinum and subcutaneous emphysema related to above complication. 3. Underlying chronic obstructive pulmonary disease with chronic respiratory failure. 4. Morbid obesity. 5. Dyslipidemia. 6. Gastroesophageal reflux disease. Plan . 1. PTX resolved on cxr 2. Continue chest tube . will place to water seal. monitor daily chest x-rays. 3. ABG stable 4. Minimize narcotics. 5. bronchodilators. 6. Lovenox for deep venous thrombosis prophylaxis. 7. transfer to floor ANGELA ARRIOLA MD May 02, 2018 10:31
[2018-05-02] MEDS: ENOXAPARIN 40 MG/0.4 ML SYRINGE. SQ SCH ×2 (11:53→21:36)
--- NOTE | 2018-05-02 11:55 | HP ---
ADMIT DATE: 05/01/2018 HISTORY OF PRESENT ILLNESS: The patient is a 72-year-old female patient with multiple medical problems, who has been a resident at [facility]. She apparently had her tracheostomy dislodged and she was brought into the Emergency Room earlier yesterday and after she had tracheostomy, tube was dislodged. She had no difficulty breathing. The patient was adamant at not being seen by [facility] and wanted to be transferred to [facility] in the ER. An attempt was made to replace the tracheostomy. Initially, they did not have the Bivona tracheostomy and then a Shiley was placed according to the respiratory therapist. They had to put more force to get the tracheostomy tube in. The patient was then transferred to [facility] per her request. However, during en route, she became more short of breath and as a result, she was brought back by ambulance to [facility] Emergency Room. A chest x-ray at that time performed, and in fact, there were 2 x-rays, one of them showed the small left lower lobe pneumothorax and the second one was a moderate increase in the size of the pneumothorax. At that time, the patient was referred to the interventional radiologist for placement of chest tube and in the interventional suite, her tracheostomy tube was in the mediastinum and she apparently was found to have bilateral pneumothorax, more on the left than on the right. She has also pneumomediastinum and her tracheostomy tube was in the mediastinum. The cardiothoracic surgeon was called. At the bedside assessment, it was felt that she had no tracheal tear. The pneumomediastinum was likely caused by the tracheostomy insertion in the false lumen. At that time, a decision was made to remove the tracheostomy and a chest tube placed and chest x-ray showed a significant improvement in her left side. She was admitted to ICU for close observation. She was put on 2 liters of oxygen, maintaining her oxygen saturation at 99%. PAST MEDICAL HISTORY: Significant for type 2 diabetes mellitus, anemia, morbid obesity, chronic hypoxic hypercapnic respiratory failure, recent cardiac arrest with anoxic brain injury, cognitive impairment, dysphagia and hyperlipidemia. PAST SURGICAL HISTORY: Significant for tracheostomy tube placement as well as percutaneous endoscopic gastrostomy tube placement. ALLERGIES: SHE IS ALLERGIC TO ATROPINE, BELLADONNA, CEPHALOSPORIN, METFORMIN AND SCOPOLAMINE. FAMILY HISTORY: Positive for congestive heart failure and myocardial infarction. SOCIAL HISTORY: She has been a resident at [facility]. She does not smoke; she is a former smoker. She does not drink alcohol or recreational drugs. She actually was improving, and in fact, her tracheostomy tube was capped and she was maintaining her oxygen saturation at 96% to 98% on 2 liters of oxygen. Her dysphagia has improved and she was on a mechanical soft diet with nectar-thickened liquid. MEDICATIONS: She is currently on following medications: She is on albuterol sulfate 2.5 mg in 3 mL by nebulizer 4 times a day, Plavix 75 mg once a day, atorvastatin 40 mg at bedtime, isosorbide dinitrate 20 mg daily, nitroglycerin 0.4 mg sublingually every 5 minutes x 3, carvedilol 3.25 mg twice a day, diclofenac sodium 1 gram 4 times a day and tramadol 50 mg every 6 hours. She is on Tylenol 650 mg in 20.3 mL solution per feeding tube every 4 hours, gabapentin 100 mg 3 times a day, trazodone 50 mg at bedtime, venlafaxine 37.5 mg p.o. t.i.d., Seroquel 25 mg at bedtime, lorazepam 0.5 mg every 4 hours as needed, temazepam 50 mg at bedtime, Ambien CR 6.25 mg at bedtime, guaifenesin with codeine 5 mL every 4 hours, Colace 100 mg twice a day, polyethylene glycol 17 grams daily and omeprazole for Prilosec 20 mg daily. She is on Lantus insulin 40 units twice a day and Humalog insulin before meals. She is on miconazole cream twice a day, nystatin and triamcinolone applied twice a day. REVIEW OF SYSTEMS: As per history of present illness. PHYSICAL EXAMINATION: GENERAL: On arrival to the Emergency Room, she was slightly tachypneic, but there is no pallor, jaundice, cyanosis or thyromegaly. No jugular venous distention. No lower limb edema. VITAL SIGNS: Her heart rate was 100, blood pressure was 199/107, temperature was 97.9, respiratory rate 22 and oxygen saturation was 96% on 5 liters of oxygen. HEENT: Examination of the head, eyes, ears, nose and throat showed normocephalic, atraumatic. NECK: Supple. Her tracheostomy tube was dislodged. HEART: Showed normal first and second heart sounds. No gallop, rub or murmur. CHEST: Clear to auscultation. No crepitation or rhonchi. ABDOMEN: Distended, soft and nontender with a gastrostomy tube in place. NEUROLOGIC: She is awake, alert, very agitated, restless. However, all cranial nerves intact. She moves upper extremities to much good extent than the lower extremities. She is mostly bedbound, chair bound. LABORATORY DATA: Her lab work showed a white cell count of 11,900, hemoglobin 11.6, hematocrit 35.5, MCV 93 and platelet count 400,000 with normal manual differential. Her chemistry showed her serum sodium to be 138, potassium 4.5, chloride 102, bicarbonate 27, anion gap of 9, BUN 12, creatinine 1.1, estimated GFR was 49 mL per minute, her glucose was 229 and calcium was 9.9. Total bilirubin, AST, ALT, alkaline phosphatase were normal. Total protein 7.5. Albumin 3.1. Her blood gases showed a pH of 7.31, pCO2 of 51, pO2 of 113, bicarbonate 25 and oxygen saturation was 97% on FiO2 of 36%. Her initial chest x-ray showed that she has normal mediastinum finding, probably iatrogenic if the tracheostomy is being manipulated. She has mild left basilar atelectasis or scarring. The patient eventually was seen by the interventional radiologist for bilateral pneumothoraces, left greater than right; normal mediastinum, status post tracheostomy tube replacement in the Emergency Room under local anesthesia. The patient underwent CT-guided left chest tube placement with evacuation of 1 liter of air as described. An incidental note of malposition of the tracheostomy tube. This was probably addressed by the operations vocational instructor and respiratory therapist. The patient was admitted to ICU to be monitored closely. We resumed all her medication and her tube feeding and obviously we will monitor whether she will be able to survive with the tracheostomy tube. We have already consulted the operations vocational instructor who assists with the initial management. JAIR MAHARAJ MD DR: MONTSERRAT/brennon JOB#: [id number] / [id number]
[2018-05-02] MEDS: traMADol 50 MG TABLET PO PRN (15:57)
[2018-05-02] MEDS: MORPHINE SULFATE 4 MG/ML VIAL. IV PRN (17:06)
[2018-05-02] MEDS: LORazepam 0.5 MG TABLET PO PRN (19:34)
[2018-05-02] MEDS: ATORVASTATIN CALCIUM 40 MG TABLET. PO SCH (21:34)
[2018-05-02] MEDS: ZOLPIDEM 5 MG TABLET. PO SCH (21:35)
[2018-05-02] MEDS: traZODone 50 MG TABLET. PO SCH (21:35)
[2018-05-02] MEDS: QUEtiapine 25 MG TABLET. PO SCH (21:35)
[2018-05-03] VITALS (7 sets, daily range): BP systolic 98–132; BP diastolic 46–66
--- NOTE | 2018-05-03 00:09 | PN ---
DATE: 05/02/2018 SUBJECTIVE: The patient was admitted yesterday after she has accidentally dislodged her tracheostomy tube. When the tracheostomy tube was placed, she developed pneumomediastinum and bilateral left pneumothoraces, more in the left side. A chest tube was placed by the interventional radiologist and the tracheostomy was removed. The patient did very well after that and she remained well oxygenated throughout the night on 2 liters of oxygen, although she has been extremely agitated, restless throughout the night. PHYSICAL EXAMINATION: GENERAL: When I examined her this morning, she looked well and was clearly in no apparent respiratory distress, pale, not jaundiced, cyanosis or thyromegaly. No jugular venous distension. No limb edema. VITAL SIGNS: Her heart rate was 66, blood pressure was 85/56, her temperature was 98, respiratory rate was 12 and oxygen saturation was 100% on 2 liters of oxygen by nasal cannula. HEAD, EYES, EARS, NOSE AND THROAT: Showed normocephalic, atraumatic. NECK: Supple with tracheostomy site covered with dressing. HEART: Showed normal first and second heart sounds with no gallop, rub or murmur. CHEST: Clear to auscultation. No crepitation or rhonchi. ABDOMEN: Distended, soft, nontender. No guarding or rigidity. No organomegaly. All hernial orifices intact. Bowel sounds normal. She has a gastrostomy tube in place. NEUROLOGIC: She was sleepy, but arousable. All her cranial nerves intact. She moves upper extremities to much good extent than lower extremities. She is mostly bedbound, chair bound. Her intake was 834, output was 313. No lab work available today. Her chest x-ray done this morning showed no evidence of residual pneumothorax, worsening moderate bibasilar opacities compatible with atelectasis. The patient was given a bolus of normal saline and she continued to be well oxygenated on 2 liters of oxygen by nasal cannula and was clearly in no apparent respiratory distress. She is actually if anything, her respiratory rate was slow and she might have given too much morphine last night that might also be the cause of her low blood pressure. I will repeat all her lab work today. I will start her on IV antibiotic if she spiked a temperature. ASSESSMENT AND PLAN: 1. In summary, this is a 72-year-old who was admitted with dislodgement of her tracheostomy tube accidentally with resultant pneumomediastinum and bilateral pneumothoraces, left more than right. 2. She has acute on chronic respiratory failure from dislodgement of tracheostomy. 3. She has underlying chronic obstructive pulmonary disease and chronic respiratory failure. 4. Morbid obesity, hyperlipidemia, gastroesophageal reflux disease and type 2 diabetes. We will continue to monitor her on 2 liters of oxygen. Continue with nutritional support in the form of tube feeding. Continue to monitor her blood sugar and adjust insulin as needed. Continue with deep venous thrombosis prophylaxis. If the patient remained stable, she can be transferred to the floor. JAIR MAHARAJ MD DR: MONTSERRAT/brennon JOB#: [id number] / [id number]
[2018-05-03] MEDS: traMADol 50 MG TABLET PO PRN ×3 (05:09→21:14)
[2018-05-03] MEDS: LORazepam 0.5 MG TABLET PO PRN ×3 (05:09→23:00)
[2018-05-03] MEDS: PANTOPRAZOLE 40 MG TABLET.DR. PO SCH (07:19)
[2018-05-03] MEDS: CARVEDILOL 3.125 MG TABLET. PO SCH ×2 (08:00→17:00)
[2018-05-03] MEDS: INSULIN LISPRO 300 UNITS/3 ML INSULN.PEN. SQ SCH ×3 (08:00→17:00)
[2018-05-03 08:07] LABS: HEMATOCRIT 32.9 % (36.0-47.0); HEMOGLOBIN 10.7 g/dL (12.0-15.5); RED BLOOD COUNT 3.47 x10^6/uL (3.50-5.40); RED CELL DISTRIBUTION WIDTH 15.4 % (11.5-14.5); WHITE BLOOD COUNT 7.8 x10^3/uL (4.0-11.0)
[2018-05-03] MEDS: IPRATRPIUM/ALBUTEROL 0.5/2.5MG 3 ML NEBU. NEB SCH ×4 (08:11→20:00)
--- NOTE | 2018-05-03 08:12 | RAD ---
Chest radiograph 05/03/2018 7:38 AM INDICATION: Pneumothorax COMPARISON: May 02, 2018 TECHNIQUE: Portable upright frontal view of the chest is provided. FINDINGS: The cardiomediastinal silhouette is similar in appearance. The left sided pigtail thoracostomy catheter is identified with the pigtail projecting over the left upper chest. There is no residual pneumothorax. Mild interstitial prominence may be secondary to poor inspiratory excursion. No pleural effusions. Bibasilar subsegmental atelectasis appears similar. IMPRESSION: Similar appearance of the chest compared to prior examination. No pneumothorax. Electronically signed by: Marcia Denson MD (05/03/2018 8:07 AM) [id number]
[2018-05-03 08:16] LABS: ALBUMIN 2.7 g/dL (3.4-5.0); ALBUMIN/GLOBULIN RATIO 0.7 (1.0-1.7); CALCIUM 9.4 mg/dL (8.5-10.1); CREATININE 1.3 mg/dL (0.6-1.0); GFR 40.4; POTASSIUM 4.4 mmol/L (3.5-5.1); TOTAL BILIRUBIN 0.3 mg/dL (0.2-1.0); TOTAL PROTEIN 6.6 g/dL (6.4-8.2)
[2018-05-03] MEDS: DOCUSATE SODIUM 100 MG CAPSULE. PO SCH (09:00)
[2018-05-03] MEDS: INSULIN GLARGINE 300 UNITS/3 ML INSULN.PEN. SQ SCH ×2 (09:00→21:16)
[2018-05-03] MEDS: ENOXAPARIN 40 MG/0.4 ML SYRINGE. SQ SCH ×2 (09:06→21:15)
[2018-05-03] MEDS: ISOSORBIDE DINITRATE 10 MG TABLET. PO SCH (09:06)
[2018-05-03] MEDS: GABAPENTIN 100 MG CAPSULE. PO SCH ×3 (09:06→21:14)
[2018-05-03] MEDS: VENLAFAXINE 75 MG TABLET. PO SCH ×3 (09:06→21:14)
[2018-05-03] MEDS: CLOPIDOGREL BISULFATE 75 MG TABLET PO SCH (09:06)
[2018-05-03] MEDS: POLYETHYLENE GLYCOL 3350 17 GM PACKET. PO SCH (09:06)
[2018-05-03] MEDS: NYSTATIN 100,000 UNIT/GM TOPICAL CREAM 15GM TUBE. TP SCH ×2 (09:07→21:17)
[2018-05-03] MEDS: TRIAMCINOLONE ACETONIDE 0.1% TOPICAL CREAM 15GM TUBE. TP SCH ×2 (09:07→21:17)
[2018-05-03] MEDS: PHENOL ORAL SPRAY 177ML BOTTLE. PO PRN (11:33)
[2018-05-03] MEDS: guaiFENesin/CODEINE 100mg/10mg 5 ML LIQUID PO PRN ×2 (11:33→23:00)
--- NOTE | 2018-05-03 11:34 | PDOC ---
PULMONARY PROGRESS NOTES Subjective NO ULICES Vitals Vital Signs Date Time Temp Pulse Resp B/P (MAP) Pulse Ox O2 Delivery O2 Flow Rate FiO2 05/03/18 09:06 79 118/53 05/03/18 08:14 98 Nasal Cannula 1.5 05/03/18 07:00 97.5 22 97.5 General: Alert, No acute distress Lungs: Clear Cardiovascular: S1 Abdomen: Soft Neuro Exam: Alert Extremities: Other (TRACE EDEMA) Skin: Warm Labs Laboratory Tests Test 05/01/18 14:00 05/01/18 14:10 05/01/18 15:40 05/01/18 18:24 Nasal Screen MRSA (PCR) Negative (Negative) O2 Saturation 97 % (92-99) Arterial Blood pH 7.31 (7.35-7.45) Arterial Blood pCO2 at Patient Temp 51 mmHg (35-46) Arterial Blood pO2 at Patient Temp 113 mmHg (65-108) Arterial Blood HCO3 25 mmol/L (21-28) Arterial Blood Base Excess -2 mmol/L (-3-3) FiO2 36 White Blood Count 11.9 x10^3/uL (4.0-11.0) Red Blood Count 3.80 x10^6/uL (3.50-5.40) Hemoglobin 11.6 g/dL (12.0-15.5) Hematocrit 35.5 % (36.0-47.0) Mean Corpuscular Volume 93 fL (79-100) Mean Corpuscular Hemoglobin 31 pg (25-35) Mean Corpuscular Hemoglobin Concent 33 g/dL (31-37) Red Cell Distribution Width 15.1 % (11.5-14.5) Platelet Count 400 x10^3/uL (140-400) Neutrophils (%) (Auto) 95 % (31-73) Lymphocytes (%) (Auto) 5 % (24-48) Monocytes (%) (Auto) 1 % (0-9) Eosinophils (%) (Auto) 0 % (0-3) Basophils (%) (Auto) 0 % (0-3) Neutrophils # (Auto) 11.2 x10^3uL (1.8-7.7) Lymphocytes # (Auto) 0.5 x10^3/uL (1.0-4.8) Monocytes # (Auto) 0.1 x10^3/uL (0.0-1.1) Eosinophils # (Auto) 0.0 x10^3/uL (0.0-0.7) Basophils # (Auto) 0.0 x10^3/uL (0.0-0.2) Segmented Neutrophils % 91 % (35-66) Band Neutrophils % 1 % (0-9) Lymphocytes % 7 % (24-48) Monocytes % 1 % (0-10) Platelet Estimate Adequate (ADEQUATE) Polychromasia Slight Sodium Level 138 mmol/L (136-145) Potassium Level 4.5 mmol/L (3.5-5.1) Chloride Level 102 mmol/L (98-107) Carbon Dioxide Level 27 mmol/L (21-32) Anion Gap 9 (6-14) Blood Urea Nitrogen 12 mg/dL (7-20) Creatinine 1.1 mg/dL (0.6-1.0) Estimated GFR (Cockcroft-Gault) 49.0 BUN/Creatinine Ratio 11 (6-20) Glucose Level 229 mg/dL (70-99) Calcium Level 9.9 mg/dL (8.5-10.1) Total Bilirubin 0.5 mg/dL (0.2-1.0) Aspartate Amino Transf (AST/SGOT) 13 U/L (15-37) Alanine Aminotransferase (ALT/SGPT) 17 U/L (14-59) Alkaline Phosphatase 131 U/L (46-116) Troponin I Quantitative < 0.017 ng/mL (0.000-0.055) HT-Rmh-U-Type Natriuretic Peptide 460 pg/mL (0-124) Total Protein 7.5 g/dL (6.4-8.2) Albumin 3.1 g/dL (3.4-5.0) Albumin/Globulin Ratio 0.7 (1.0-1.7) Glucose (Fingerstick) 213 mg/dL (70-99) Test 05/01/18 21:07 05/02/18 09:35 05/02/18 11:55 05/02/18 17:12 Glucose (Fingerstick) 208 mg/dL (70-99) 189 mg/dL (70-99) 174 mg/dL (70-99) 169 mg/dL (70-99) Test 05/02/18 20:32 05/03/18 07:10 05/03/18 08:20 Glucose (Fingerstick) 165 mg/dL (70-99) 145 mg/dL (70-99) White Blood Count 7.8 x10^3/uL (4.0-11.0) Red Blood Count 3.47 x10^6/uL (3.50-5.40) Hemoglobin 10.7 g/dL (12.0-15.5) Hematocrit 32.9 % (36.0-47.0) Mean Corpuscular Volume 95 fL (79-100) Mean Corpuscular Hemoglobin 31 pg (25-35) Mean Corpuscular Hemoglobin Concent 32 g/dL (31-37) Red Cell Distribution Width 15.4 % (11.5-14.5) Platelet Count 364 x10^3/uL (140-400) Sodium Level 138 mmol/L (136-145) Potassium Level 4.4 mmol/L (3.5-5.1) Chloride Level 103 mmol/L (98-107) Carbon Dioxide Level 27 mmol/L (21-32) Anion Gap 8 (6-14) Blood Urea Nitrogen 22 mg/dL (7-20) Creatinine 1.3 mg/dL (0.6-1.0) Estimated GFR (Cockcroft-Gault) 40.4 BUN/Creatinine Ratio 17 (6-20) Glucose Level 165 mg/dL (70-99) Calcium Level 9.4 mg/dL (8.5-10.1) Total Bilirubin 0.3 mg/dL (0.2-1.0) Aspartate Amino Transf (AST/SGOT) 14 U/L (15-37) Alanine Aminotransferase (ALT/SGPT) 15 U/L (14-59) Alkaline Phosphatase 101 U/L (46-116) Total Protein 6.6 g/dL (6.4-8.2) Albumin 2.7 g/dL (3.4-5.0) Albumin/Globulin Ratio 0.7 (1.0-1.7) Laboratory Tests Test 05/02/18 11:55 05/02/18 17:12 05/02/18 20:32 05/03/18 07:10 Glucose (Fingerstick) 174 mg/dL (70-99) 169 mg/dL (70-99) 165 mg/dL (70-99) White Blood Count 7.8 x10^3/uL (4.0-11.0) Red Blood Count 3.47 x10^6/uL (3.50-5.40) Hemoglobin 10.7 g/dL (12.0-15.5) Hematocrit 32.9 % (36.0-47.0) Mean Corpuscular Volume 95 fL (79-100) Mean Corpuscular Hemoglobin 31 pg (25-35) Mean Corpuscular Hemoglobin Concent 32 g/dL (31-37) Red Cell Distribution Width 15.4 % (11.5-14.5) Platelet Count 364 x10^3/uL (140-400) Sodium Level 138 mmol/L (136-145) Potassium Level 4.4 mmol/L (3.5-5.1) Chloride Level 103 mmol/L (98-107) Carbon Dioxide Level 27 mmol/L (21-32) Anion Gap 8 (6-14) Blood Urea Nitrogen 22 mg/dL (7-20) Creatinine 1.3 mg/dL (0.6-1.0) Estimated GFR (Cockcroft-Gault) 40.4 BUN/Creatinine Ratio 17 (6-20) Glucose Level 165 mg/dL (70-99) Calcium Level 9.4 mg/dL (8.5-10.1) Total Bilirubin 0.3 mg/dL (0.2-1.0) Aspartate Amino Transf (AST/SGOT) 14 U/L (15-37) Alanine Aminotransferase (ALT/SGPT) 15 U/L (14-59) Alkaline Phosphatase 101 U/L (46-116) Total Protein 6.6 g/dL (6.4-8.2) Albumin 2.7 g/dL (3.4-5.0) Albumin/Globulin Ratio 0.7 (1.0-1.7) Test 05/03/18 08:20 Glucose (Fingerstick) 145 mg/dL (70-99) Medications Active Scripts Medications Dose Route/Sig Max Daily Dose Days Date Category Voltaren (Diclofenac Sodium) 100 Gm Gel..gram. 1 Gm TP QID PRN 05/01/18 Reported Venlafaxine Hcl 75 Mg Tablet 1 Tab PO DAILY 05/01/18 Reported Tramadol Hcl 50 Mg Tablet 50 Mg PO DAILY PRN 05/01/18 Reported Seroquel (Quetiapine Fumarate) 25 Mg Tablet 1 Tab PO QHS 05/01/18 Reported Prilosec Otc (Omeprazole Magnesium) 20 Mg Tablet.dr 1 Tab PO DAILY 05/01/18 Reported Nystatin-Triamcinolone Cream (Nystatin/Triamcin) 15 Gm Cream..g. 1 Cresencio TP BID 05/01/18 Reported Nitroglycerin 0.3 Mg Tab.subl 0.3 Mg SL 05/01/18 Reported Miralax (Polyethylene Glycol 3350) 17 Gm Powd.pack 1 Packet PO DAILY 05/01/18 Reported Miconazole 7 (Miconazole Nitrate) 45 Gm Cream.appl 45 Gm VG BID 05/01/18 Reported Lorazepam 0.5 Mg Tablet 1 Tab PO Q4HRS PRN 05/01/18 Reported Lantus Solostar (Insulin Glargine,Hum.rec.anlog) 100 Unit/1 Ml Insuln.pen 40 Unit SQ BID 05/01/18 Reported Isosorbide Dinitrate 20 Mg Tablet 20 Mg PO DAILY 05/01/18 Reported Guaifenesin Ac Cough Syrup (Guaifenesin/Codeine Phosphate) 473 Ml Liquid 5 Ml PO Q4HRS 05/01/18 Reported Gabapentin 100 Mg Capsule 100 Mg PO TID 05/01/18 Reported Docusate Sodium 100 Mg Capsule 1 Ea PEG DAILY 05/01/18 Reported Clopidogrel (Clopidogrel Bisulfate) 75 Mg Tablet 1 Tab PO DAILY 05/01/18 Reported Carvedilol 3.125 Mg Tablet 1 Tab PO BID 05/01/18 Reported Atorvastatin Calcium 40 Mg Tablet 1 Tab PO DAILY 05/01/18 Reported Ambien Cr (Zolpidem Tartrate) 6.25 Mg Tab.mphase 1 Tab PO QHS 05/01/18 Reported Acetaminophen 325 Mg/10.15 Ml Solution 650 Mg PEG 05/01/18 Reported Macrobid 100 Mg Capsule (Nitrofurantoin Monohyd/M-Cryst) 100 Mg Capsule 1 Cap PO BID 04/07/18 Rx Levaquin (Levofloxacin) 500 Mg Tablet 750 Mg IV ONCE 12/10/17 Reported Seroquel (Quetiapine Fumarate) 25 Mg Tablet 25 Mg PO HS 12/10/17 Reported Venlafaxine Hcl 37.5 Mg Tablet 37.5 Mg PO TID 12/10/17 Reported Temazepam 15 Mg Capsule 15 Mg PO HS PRN 12/10/17 Reported Trazodone Hcl 50 Mg Tablet 50 Mg PO HS 12/10/17 Reported Isosorbide Dinitrate 20 Mg Tablet 20 Mg PO DAILY 12/10/17 Reported Plavix (Clopidogrel Bisulfate) 75 Mg Tablet 75 Mg PO DAILY 12/10/17 Reported Atorvastatin Calcium 40 Mg Tablet 40 Mg PO HS 12/10/17 Reported Tramadol Hcl 50 Mg Tablet 50 Mg PO Q6HRS PRN 12/10/17 Reported Gabapentin 100 Mg Capsule 100 Mg PO TID 12/10/17 Reported Carvedilol 3.125 Mg Tablet 3.125 Mg PO BIDWMEALS 12/10/17 Reported NITROGLYCERIN SubLingual (Nitroglycerin) 0.4 Mg Tab.subl 1 Tab SL UD 11/15/17 Reported Lantus Solostar (Insulin Glargine,Hum.rec.anlog) 100 Unit/1 Ml Insuln.pen 40 Unit SQ Q12HR 11/15/17 Reported Albuterol Sulfate Neb Soln (Albuterol Sulfate) 2.5 Mg/3 Ml Vial.neb 1 Vial NEB QID 11/15/17 Reported Humalog (Insulin Lispro) 100 Unit/1 Ml Cartridge 0 SQ Q6HRS 11/15/17 Reported Impression . 1. Acute on chronic respiratory failure from dislodgement of the tracheostomy tube and Iatrogenic reinsertion of tracheostomy tube in the mediastinum with subsequent removal. 2. Bilateral pneumothorax, mostly on the left side and a very tiny one on the right side along with pneumomediastinum and subcutaneous emphysema related to above complication.resolved with chest tube 3. Underlying chronic obstructive pulmonary disease with chronic respiratory failure. 4. Morbid obesity. 5. Dyslipidemia. 6. Gastroesophageal reflux disease. Plan . 1. PTX resolved on cxr 2. will clamp chest tube for 24 hr and removal in am if no PTX 3. ABG stable 4. Minimize narcotics. 5. bronchodilators. 6. Lovenox for deep venous thrombosis prophylaxis. 7. d/w ANGELA HERRERA MD May 03, 2018 11:34
--- NOTE | 2018-05-03 16:15 | PN ---
DATE: 05/03/2018 SUBJECTIVE: The patient is resting, slightly propped up in bed, in no apparent respiratory distress. She is awake, alert. On questioning her, denied any complaint. She did complain of a lot of pain last night. Apparently eventually, she has a porsha sleep. PHYSICAL EXAMINATION: GENERAL: When I examined her, she was resting slightly propped up in bed with no pallor, jaundice, cyanosis, or thyromegaly. No jugular venous distension. No lower limb edema. VITAL SIGNS: Her heart rate was 79, blood pressure was 118/53, temperature was 97.5, respiratory rate was 22 and oxygen saturation was 97% on 2 liters of oxygen by nasal cannula. HEAD, EYES, EARS, NOSE AND THROAT: Showed normocephalic, atraumatic. NECK: Supple. HEART: Showed normal first and second heart sounds with no gallop, rub or murmur. CHEST: Clear to auscultation. No crepitation or rhonchi. ABDOMEN: Distended, soft, nontender. NEUROLOGIC: She is awake, alert, responding appropriately. She moves upper extremities to much good extent than lower extremities. She is mostly bedbound, chair bound. She has a left-sided chest tube to underwater seal. Her intake over the last 24 hours was 834, output was 813 hours. LABORATORY DATA: As of this morning, her white cell count was 7800, hemoglobin 11, hematocrit 33, MCV 95 and platelet count 364,000. Her chemistry showed a serum sodium 138, potassium 4.4, chloride 103, bicarbonate 27, anion gap of 8, BUN 22, creatinine 1.3, estimated GFR was 40 mL per minute. Her glucose 165, calcium 9.4. Total bilirubin, AST, ALT, alkaline phosphatase were normal. Total protein 6.6, albumin 2.7. Her chest x-ray showed that the cardiomediastinal silhouette is similar in appearance. The left-sided pigtail thoracostomy catheter is identified with a pigtail projecting over the left upper chest. There is no residual pneumothorax, mild interstitial prominence may be secondary to poor respiratory effort. She has no pleural effusion. She has bibasilar subsegmental atelectasis, appears similar. PLAN: Obviously to continue to consult the speech therapy to do a video swallowing evaluation. Continue with nutritional support. Continue all her medication and continue with DVT prophylaxis and pain management once the chest tube will be clamped and will be taken out and we will obviously discharge her back to [facility]. JAIR MAHARAJ MD DR: MONTSERRAT/brennon JOB#: [id number] / [id number]
[2018-05-03] MEDS: ALBUTEROL SULFATE 2.5 MG/3 ML NEBU. NEB PRN (18:36)
[2018-05-03] MEDS: ZOLPIDEM 5 MG TABLET. PO SCH (21:15)
[2018-05-03] MEDS: ATORVASTATIN CALCIUM 40 MG TABLET. PO SCH (21:15)
[2018-05-03] MEDS: QUEtiapine 25 MG TABLET. PO SCH (21:15)
[2018-05-03] MEDS: traZODone 50 MG TABLET. PO SCH (21:15)
[2018-05-04] MEDS: LORazepam 0.5 MG TABLET PO PRN ×3 (02:27→16:47)
[2018-05-04 02:31] VITALS: BP 108/37
[2018-05-04] MEDS: guaiFENesin/CODEINE 100mg/10mg 5 ML LIQUID PO PRN ×3 (02:34→16:48)
[2018-05-04 05:59] LABS: HEMATOCRIT 29.9 % (36.0-47.0); RED BLOOD COUNT 3.15 x10^6/uL (3.50-5.40); RED CELL DISTRIBUTION WIDTH 15.2 % (11.5-14.5); WHITE BLOOD COUNT 7.8 x10^3/uL (4.0-11.0)
[2018-05-04 06:08] LABS: CALCIUM 9.5 mg/dL (8.5-10.1); CREATININE 1.2 mg/dL (0.6-1.0); GFR 44.3; POTASSIUM 4.7 mmol/L (3.5-5.1)
[2018-05-04 07:00] VITALS: BP 114/54
--- NOTE | 2018-05-04 07:38 | RAD ---
Portable chest, 05/04/2018: HISTORY: Follow-up pneumothorax Comparison is made to a study from 05/03/2018. The left pleural catheter remains in place. There is no evidence of recurrent pneumothorax. There are mild ongoing streaky bibasilar opacities compatible with atelectasis. No definite pleural fluid is seen. IMPRESSION: 1. No evidence of recurrent pneumothorax. 2. Ongoing mild to moderate bibasilar atelectasis. Electronically signed by: Delvin Hunt MD (05/04/2018 7:34 AM) [facility]
[2018-05-04] MEDS: IPRATRPIUM/ALBUTEROL 0.5/2.5MG 3 ML NEBU. NEB SCH ×4 (07:46→19:44)
[2018-05-04] MEDS: INSULIN LISPRO 300 UNITS/3 ML INSULN.PEN. SQ SCH ×3 (08:00→16:56)
[2018-05-04] MEDS: CARVEDILOL 3.125 MG TABLET. PO SCH ×2 (08:00→16:47)
--- NOTE | 2018-05-04 08:01 | PDOC ---
PULMONARY PROGRESS NOTES Subjective on 02, sob better, has cough, has some pain in ct site Vitals Vital Signs Date Time Temp Pulse Resp B/P (MAP) Pulse Ox O2 Delivery O2 Flow Rate FiO2 05/04/18 07:49 94 Nasal Cannula 2.0 05/04/18 02:31 97.6 75 22 108/37 (60) 97.6 General: Alert, No acute distress HEENT: Other (nc at perrl nose throat clear, dressing on trach site) Lungs: Crackles, Other (l ct) Cardiovascular: S1 Abdomen: Soft, Non-tender Neuro Exam: Alert Extremities: Other (TRACE EDEMA) Skin: Warm Labs Laboratory Tests Test 05/02/18 09:35 05/02/18 11:55 05/02/18 17:12 05/02/18 20:32 Glucose (Fingerstick) 189 mg/dL (70-99) 174 mg/dL (70-99) 169 mg/dL (70-99) 165 mg/dL (70-99) Test 05/03/18 07:10 05/03/18 08:20 05/03/18 11:31 05/03/18 16:08 White Blood Count 7.8 x10^3/uL (4.0-11.0) Red Blood Count 3.47 x10^6/uL (3.50-5.40) Hemoglobin 10.7 g/dL (12.0-15.5) Hematocrit 32.9 % (36.0-47.0) Mean Corpuscular Volume 95 fL (79-100) Mean Corpuscular Hemoglobin 31 pg (25-35) Mean Corpuscular Hemoglobin Concent 32 g/dL (31-37) Red Cell Distribution Width 15.4 % (11.5-14.5) Platelet Count 364 x10^3/uL (140-400) Sodium Level 138 mmol/L (136-145) Potassium Level 4.4 mmol/L (3.5-5.1) Chloride Level 103 mmol/L (98-107) Carbon Dioxide Level 27 mmol/L (21-32) Anion Gap 8 (6-14) Blood Urea Nitrogen 22 mg/dL (7-20) Creatinine 1.3 mg/dL (0.6-1.0) Estimated GFR (Cockcroft-Gault) 40.4 BUN/Creatinine Ratio 17 (6-20) Glucose Level 165 mg/dL (70-99) Calcium Level 9.4 mg/dL (8.5-10.1) Total Bilirubin 0.3 mg/dL (0.2-1.0) Aspartate Amino Transf (AST/SGOT) 14 U/L (15-37) Alanine Aminotransferase (ALT/SGPT) 15 U/L (14-59) Alkaline Phosphatase 101 U/L (46-116) Total Protein 6.6 g/dL (6.4-8.2) Albumin 2.7 g/dL (3.4-5.0) Albumin/Globulin Ratio 0.7 (1.0-1.7) Glucose (Fingerstick) 145 mg/dL (70-99) 147 mg/dL (70-99) 155 mg/dL (70-99) Test 05/03/18 20:58 05/04/18 05:25 Glucose (Fingerstick) 165 mg/dL (70-99) White Blood Count 7.8 x10^3/uL (4.0-11.0) Red Blood Count 3.15 x10^6/uL (3.50-5.40) Hemoglobin 10.0 g/dL (12.0-15.5) Hematocrit 29.9 % (36.0-47.0) Mean Corpuscular Volume 95 fL (79-100) Mean Corpuscular Hemoglobin 32 pg (25-35) Mean Corpuscular Hemoglobin Concent 33 g/dL (31-37) Red Cell Distribution Width 15.2 % (11.5-14.5) Platelet Count 346 x10^3/uL (140-400) Sodium Level 134 mmol/L (136-145) Potassium Level 4.7 mmol/L (3.5-5.1) Chloride Level 102 mmol/L (98-107) Carbon Dioxide Level 25 mmol/L (21-32) Anion Gap 7 (6-14) Blood Urea Nitrogen 28 mg/dL (7-20) Creatinine 1.2 mg/dL (0.6-1.0) Estimated GFR (Cockcroft-Gault) 44.3 Glucose Level 157 mg/dL (70-99) Calcium Level 9.5 mg/dL (8.5-10.1) Laboratory Tests Test 05/03/18 08:20 05/03/18 11:31 05/03/18 16:08 05/03/18 20:58 Glucose (Fingerstick) 145 mg/dL (70-99) 147 mg/dL (70-99) 155 mg/dL (70-99) 165 mg/dL (70-99) Test 05/04/18 05:25 White Blood Count 7.8 x10^3/uL (4.0-11.0) Red Blood Count 3.15 x10^6/uL (3.50-5.40) Hemoglobin 10.0 g/dL (12.0-15.5) Hematocrit 29.9 % (36.0-47.0) Mean Corpuscular Volume 95 fL (79-100) Mean Corpuscular Hemoglobin 32 pg (25-35) Mean Corpuscular Hemoglobin Concent 33 g/dL (31-37) Red Cell Distribution Width 15.2 % (11.5-14.5) Platelet Count 346 x10^3/uL (140-400) Sodium Level 134 mmol/L (136-145) Potassium Level 4.7 mmol/L (3.5-5.1) Chloride Level 102 mmol/L (98-107) Carbon Dioxide Level 25 mmol/L (21-32) Anion Gap 7 (6-14) Blood Urea Nitrogen 28 mg/dL (7-20) Creatinine 1.2 mg/dL (0.6-1.0) Estimated GFR (Cockcroft-Gault) 44.3 Glucose Level 157 mg/dL (70-99) Calcium Level 9.5 mg/dL (8.5-10.1) Medications Active Scripts Medications Dose Route/Sig Max Daily Dose Days Date Category Voltaren (Diclofenac Sodium) 100 Gm Gel..gram. 1 Gm TP QID PRN 05/01/18 Reported Venlafaxine Hcl 75 Mg Tablet 1 Tab PO DAILY 05/01/18 Reported Tramadol Hcl 50 Mg Tablet 50 Mg PO DAILY PRN 05/01/18 Reported Seroquel (Quetiapine Fumarate) 25 Mg Tablet 1 Tab PO QHS 05/01/18 Reported Prilosec Otc (Omeprazole Magnesium) 20 Mg Tablet.dr 1 Tab PO DAILY 05/01/18 Reported Nystatin-Triamcinolone Cream (Nystatin/Triamcin) 15 Gm Cream..g. 1 Cresencio TP BID 05/01/18 Reported Nitroglycerin 0.3 Mg Tab.subl 0.3 Mg SL 05/01/18 Reported Miralax (Polyethylene Glycol 3350) 17 Gm Powd.pack 1 Packet PO DAILY 05/01/18 Reported Miconazole 7 (Miconazole Nitrate) 45 Gm Cream.appl 45 Gm VG BID 05/01/18 Reported Lorazepam 0.5 Mg Tablet 1 Tab PO Q4HRS PRN 05/01/18 Reported Lantus Solostar (Insulin Glargine,Hum.rec.anlog) 100 Unit/1 Ml Insuln.pen 40 Unit SQ BID 05/01/18 Reported Isosorbide Dinitrate 20 Mg Tablet 20 Mg PO DAILY 05/01/18 Reported Guaifenesin Ac Cough Syrup (Guaifenesin/Codeine Phosphate) 473 Ml Liquid 5 Ml PO Q4HRS 05/01/18 Reported Gabapentin 100 Mg Capsule 100 Mg PO TID 05/01/18 Reported Docusate Sodium 100 Mg Capsule 1 Ea PEG DAILY 05/01/18 Reported Clopidogrel (Clopidogrel Bisulfate) 75 Mg Tablet 1 Tab PO DAILY 05/01/18 Reported Carvedilol 3.125 Mg Tablet 1 Tab PO BID 05/01/18 Reported Atorvastatin Calcium 40 Mg Tablet 1 Tab PO DAILY 05/01/18 Reported Ambien Cr (Zolpidem Tartrate) 6.25 Mg Tab.mphase 1 Tab PO QHS 05/01/18 Reported Acetaminophen 325 Mg/10.15 Ml Solution 650 Mg PEG 05/01/18 Reported Macrobid 100 Mg Capsule (Nitrofurantoin Monohyd/M-Cryst) 100 Mg Capsule 1 Cap PO BID 04/07/18 Rx Levaquin (Levofloxacin) 500 Mg Tablet 750 Mg IV ONCE 12/10/17 Reported Seroquel (Quetiapine Fumarate) 25 Mg Tablet 25 Mg PO HS 12/10/17 Reported Venlafaxine Hcl 37.5 Mg Tablet 37.5 Mg PO TID 12/10/17 Reported Temazepam 15 Mg Capsule 15 Mg PO HS PRN 12/10/17 Reported Trazodone Hcl 50 Mg Tablet 50 Mg PO HS 12/10/17 Reported Isosorbide Dinitrate 20 Mg Tablet 20 Mg PO DAILY 12/10/17 Reported Plavix (Clopidogrel Bisulfate) 75 Mg Tablet 75 Mg PO DAILY 12/10/17 Reported Atorvastatin Calcium 40 Mg Tablet 40 Mg PO HS 12/10/17 Reported Tramadol Hcl 50 Mg Tablet 50 Mg PO Q6HRS PRN 12/10/17 Reported Gabapentin 100 Mg Capsule 100 Mg PO TID 12/10/17 Reported Carvedilol 3.125 Mg Tablet 3.125 Mg PO BIDWMEALS 12/10/17 Reported NITROGLYCERIN SubLingual (Nitroglycerin) 0.4 Mg Tab.subl 1 Tab SL UD 11/15/17 Reported Lantus Solostar (Insulin Glargine,Hum.rec.anlog) 100 Unit/1 Ml Insuln.pen 40 Unit SQ Q12HR 11/15/17 Reported Albuterol Sulfate Neb Soln (Albuterol Sulfate) 2.5 Mg/3 Ml Vial.neb 1 Vial NEB QID 11/15/17 Reported Humalog (Insulin Lispro) 100 Unit/1 Ml Cartridge 0 SQ Q6HRS 11/15/17 Reported Impression . 1. Acute on chronic respiratory failure from dislodgement of the tracheostomy tube and Iatrogenic reinsertion of tracheostomy tube in the mediastinum with subsequent removal. 2. Bilateral pneumothorax, mostly on the left side and a very tiny one on the right side along with pneumomediastinum and subcutaneous emphysema related to above complication.resolved with chest tube 3. Underlying chronic obstructive pulmonary disease with chronic respiratory failure. 4. Morbid obesity. 5. Dyslipidemia. 6. Gastroesophageal reflux disease. Plan . 1. cxr reviewed, no ptx 2. chest tube clamped for 24 hr, ct removed, stat cxr, reviewed, no ptx 3. ABG stable 4. Minimize narcotics. 5. bronchodilators. 6. protonix Lovenox for prophylaxis. 7. elevate hob d/w DR MAHARAJ, rn LIYAH MCLEAN MD May 04, 2018 08:01
[2018-05-04] MEDS: GABAPENTIN 100 MG CAPSULE. PO SCH ×3 (08:49→20:19)
[2018-05-04] MEDS: ENOXAPARIN 40 MG/0.4 ML SYRINGE. SQ SCH ×2 (08:49→20:19)
[2018-05-04] MEDS: ISOSORBIDE DINITRATE 10 MG TABLET. PO SCH (08:50)
[2018-05-04] MEDS: DOCUSATE SODIUM 100 MG CAPSULE. PO SCH ×2 (08:50→09:00)
[2018-05-04] MEDS: POLYETHYLENE GLYCOL 3350 17 GM PACKET. PO SCH (08:51)
[2018-05-04] MEDS: PANTOPRAZOLE 40 MG TABLET.DR. PO SCH (08:51)
[2018-05-04] MEDS: VENLAFAXINE 75 MG TABLET. PO SCH ×3 (08:51→20:19)
[2018-05-04] MEDS: CLOPIDOGREL BISULFATE 75 MG TABLET PO SCH (08:52)
[2018-05-04] MEDS: INSULIN GLARGINE 300 UNITS/3 ML INSULN.PEN. SQ SCH ×2 (09:00→21:20)
--- NOTE | 2018-05-04 09:23 | RAD ---
Portable chest, 05/04/2018, 9:03 AM: HISTORY: Chest tube removal Comparison is made to the study of earlier the same day. The left pleural drain has been removed. No recurrent pneumothorax is seen. There is mild ongoing bibasilar atelectasis. No new abnormality is detected. IMPRESSION: No evidence of pneumothorax status post left pleural drain removal. Electronically signed by: Delvin Hunt MD (05/04/2018 9:19 AM) [facility]
[2018-05-04] MEDS: ALBUTEROL SULFATE 2.5 MG/3 ML NEBU. NEB PRN ×2 (09:55→17:42)
[2018-05-04 11:00] VITALS: BP 135/56
[2018-05-04] MEDS: IV NORMAL SALINE 1000ML BAG 1,000 ML IV SCH ×2 (11:00→21:35)
[2018-05-04] MEDS: MORPHINE SULFATE 4 MG/ML VIAL. IV PRN (11:00)
[2018-05-04] MEDS: NYSTATIN 100,000 UNIT/GM TOPICAL CREAM 15GM TUBE. TP SCH ×2 (11:01→20:41)
[2018-05-04] MEDS: TRIAMCINOLONE ACETONIDE 0.1% TOPICAL CREAM 15GM TUBE. TP SCH ×2 (11:01→20:41)
[2018-05-04 15:00] VITALS: BP 138/68
[2018-05-04] MEDS ORDERED: DICLOFENAC SODIUM 1% TOPICAL GEL 100GM TUBE. TP PRN (15:15)
[2018-05-04] MEDS: PHENOL ORAL SPRAY 177ML BOTTLE. PO PRN (16:48)
[2018-05-04 19:00] VITALS: BP 99/53
[2018-05-04] MEDS: traZODone 50 MG TABLET. PO SCH (20:18)
[2018-05-04] MEDS: QUEtiapine 25 MG TABLET. PO SCH (20:19)
[2018-05-04] MEDS: ATORVASTATIN CALCIUM 40 MG TABLET. PO SCH (20:21)
[2018-05-04] MEDS: ZOLPIDEM 5 MG TABLET. PO SCH (20:21)
--- NOTE | 2018-05-04 22:16 | PN ---
DATE: 05/04/2018 SUBJECTIVE: The patient is resting slightly propped up in bed, no apparent respiratory distress. She is awake, alert. On questioning her, she denied any complaint. The nursing staff did not voice any concern and stated that she had an uneventful night. PHYSICAL EXAMINATION: GENERAL: When I examined her, she looked pale, but no jaundice, cyanosis or thyromegaly. No jugular venous distension. No lower limb edema. When I examined her, she looked well. No apparent distress. VITAL SIGNS: Her heart rate was 75, blood pressure 108/37, temperature was 97.6, respiratory rate was 22 and oxygen saturation was 95% on 2 liters of oxygen. HEAD, EYES, EARS, NOSE AND THROAT: Showed normocephalic, atraumatic. NECK: Supple. HEART: Showed normal first and second heart sounds. No gallop, rub or murmur. CHEST: Clear to auscultation. No crepitation or rhonchi. ABDOMEN: Distended, soft, nontender with a gastrostomy tube in place. NEUROLOGIC: She is awake, alert, responding appropriately. All cranial nerves intact. She moves her upper extremities to much greater extent than lower extremity. She is mostly bedbound, chair bound. INS AND OUTS: Her intake over the last 24 hours was 2235, output was 640. LABORATORY DATA: As of this morning showed a serum sodium 134, potassium 4.7, chloride 102, bicarbonate 25, anion gap of 7, BUN 28, creatinine 1.2, estimated GFR was 44 mL per minute, her glucose 157, calcium was 9.5. Her white cell count was 7800, hemoglobin 10, hematocrit 30, MCV 95, and platelet count 346,000. ASSESSMENT: 1. Acute hypoxic hypercapnic respiratory failure secondary to dislodgement of tracheostomy tube. 2. Iatrogenic pneumomediastinum and pneumothorax, status post left chest tube placement. Her lungs have completely expanded and the chest tube was clamped. 3. Chronic obstructive pulmonary disease. 4. Morbid obesity. 5. Hyperlipidemia. 6. Gastroesophageal reflux disease. 7. Recent cardiac arrest with anoxic encephalopathy. PLAN: To continue nutritional support through her gastrostomy tube. I did continue with deep vein thrombosis prophylaxis. Continue with the bronchodilator. Her tube was clamped and she is scheduled to have it removed today by the wheel braider. Her BUN and creatinine are slightly elevated, I will start her on some IV fluid and repeat her labs tomorrow. JAIR MAHARAJ MD DR: MONTSERRAT/brennon JOB#: [id number] / [id number]
[2018-05-04 23:00] VITALS: BP 125/68
[2018-05-05] MEDS: LORazepam 0.5 MG TABLET PO PRN (01:22)
[2018-05-05] MEDS: guaiFENesin/CODEINE 100mg/10mg 5 ML LIQUID PO PRN ×3 (02:34→16:00)
[2018-05-05 03:00] VITALS: BP 121/52
[2018-05-05] MEDS: OLANZapine 2.5 MG TABLET PO PRN ×5 (03:05→20:50)
[2018-05-05] MEDS: PANTOPRAZOLE 40 MG TABLET.DR. PO SCH (06:09)
[2018-05-05 07:00] VITALS: BP 125/54
[2018-05-05] MEDS: IPRATRPIUM/ALBUTEROL 0.5/2.5MG 3 ML NEBU. NEB SCH ×4 (08:03→20:30)
--- NOTE | 2018-05-05 09:45 | PDOC ---
PULMONARY PROGRESS NOTES Subjective on 02, sob better, has occ cough, has some chest wall pain, is tired Vitals Vital Signs Date Time Temp Pulse Resp B/P (MAP) Pulse Ox O2 Delivery O2 Flow Rate FiO2 05/05/18 08:05 98 Nasal Cannula 2.0 05/05/18 03:00 98.3 91 18 121/52 (75) 98.3 General: Alert, No acute distress HEENT: Other (nc at perrl nose throat clear, dressing on trach site) Lungs: Crackles, Other Cardiovascular: S1 Abdomen: Soft, Non-tender Neuro Exam: Alert Extremities: Other (TRACE EDEMA) Skin: Warm Labs Laboratory Tests Test 05/03/18 11:31 05/03/18 16:08 05/03/18 20:58 05/04/18 05:25 Glucose (Fingerstick) 147 mg/dL (70-99) 155 mg/dL (70-99) 165 mg/dL (70-99) White Blood Count 7.8 x10^3/uL (4.0-11.0) Red Blood Count 3.15 x10^6/uL (3.50-5.40) Hemoglobin 10.0 g/dL (12.0-15.5) Hematocrit 29.9 % (36.0-47.0) Mean Corpuscular Volume 95 fL (79-100) Mean Corpuscular Hemoglobin 32 pg (25-35) Mean Corpuscular Hemoglobin Concent 33 g/dL (31-37) Red Cell Distribution Width 15.2 % (11.5-14.5) Platelet Count 346 x10^3/uL (140-400) Sodium Level 134 mmol/L (136-145) Potassium Level 4.7 mmol/L (3.5-5.1) Chloride Level 102 mmol/L (98-107) Carbon Dioxide Level 25 mmol/L (21-32) Anion Gap 7 (6-14) Blood Urea Nitrogen 28 mg/dL (7-20) Creatinine 1.2 mg/dL (0.6-1.0) Estimated GFR (Cockcroft-Gault) 44.3 Glucose Level 157 mg/dL (70-99) Calcium Level 9.5 mg/dL (8.5-10.1) Test 05/04/18 07:32 05/04/18 12:37 05/04/18 15:39 05/04/18 20:26 Glucose (Fingerstick) 139 mg/dL (70-99) 159 mg/dL (70-99) 82 mg/dL (70-99) 51 mg/dL (70-99) Test 05/04/18 20:33 05/04/18 21:13 05/05/18 08:05 Glucose (Fingerstick) 67 mg/dL (70-99) 90 mg/dL (70-99) 160 mg/dL (70-99) Laboratory Tests Test 05/04/18 12:37 05/04/18 15:39 05/04/18 20:26 05/04/18 20:33 Glucose (Fingerstick) 159 mg/dL (70-99) 82 mg/dL (70-99) 51 mg/dL (70-99) 67 mg/dL (70-99) Test 05/04/18 21:13 05/05/18 08:05 Glucose (Fingerstick) 90 mg/dL (70-99) 160 mg/dL (70-99) Medications Active Scripts Medications Dose Route/Sig Max Daily Dose Days Date Category Voltaren (Diclofenac Sodium) 100 Gm Gel..gram. 1 Gm TP QID PRN 05/01/18 Reported Venlafaxine Hcl 75 Mg Tablet 1 Tab PO DAILY 05/01/18 Reported Tramadol Hcl 50 Mg Tablet 50 Mg PO DAILY PRN 05/01/18 Reported Seroquel (Quetiapine Fumarate) 25 Mg Tablet 1 Tab PO QHS 05/01/18 Reported Prilosec Otc (Omeprazole Magnesium) 20 Mg Tablet.dr 1 Tab PO DAILY 05/01/18 Reported Nystatin-Triamcinolone Cream (Nystatin/Triamcin) 15 Gm Cream..g. 1 Cresencio TP BID 05/01/18 Reported Nitroglycerin 0.3 Mg Tab.subl 0.3 Mg SL 05/01/18 Reported Miralax (Polyethylene Glycol 3350) 17 Gm Powd.pack 1 Packet PO DAILY 05/01/18 Reported Miconazole 7 (Miconazole Nitrate) 45 Gm Cream.appl 45 Gm VG BID 05/01/18 Reported Lorazepam 0.5 Mg Tablet 1 Tab PO Q4HRS PRN 05/01/18 Reported Lantus Solostar (Insulin Glargine,Hum.rec.anlog) 100 Unit/1 Ml Insuln.pen 40 Unit SQ BID 05/01/18 Reported Isosorbide Dinitrate 20 Mg Tablet 20 Mg PO DAILY 05/01/18 Reported Guaifenesin Ac Cough Syrup (Guaifenesin/Codeine Phosphate) 473 Ml Liquid 5 Ml PO Q4HRS 05/01/18 Reported Gabapentin 100 Mg Capsule 100 Mg PO TID 05/01/18 Reported Docusate Sodium 100 Mg Capsule 1 Ea PEG DAILY 05/01/18 Reported Clopidogrel (Clopidogrel Bisulfate) 75 Mg Tablet 1 Tab PO DAILY 05/01/18 Reported Carvedilol 3.125 Mg Tablet 1 Tab PO BID 05/01/18 Reported Atorvastatin Calcium 40 Mg Tablet 1 Tab PO DAILY 05/01/18 Reported Ambien Cr (Zolpidem Tartrate) 6.25 Mg Tab.mphase 1 Tab PO QHS 05/01/18 Reported Acetaminophen 325 Mg/10.15 Ml Solution 650 Mg PEG 05/01/18 Reported Macrobid 100 Mg Capsule (Nitrofurantoin Monohyd/M-Cryst) 100 Mg Capsule 1 Cap PO BID 04/07/18 Rx Levaquin (Levofloxacin) 500 Mg Tablet 750 Mg IV ONCE 12/10/17 Reported Seroquel (Quetiapine Fumarate) 25 Mg Tablet 25 Mg PO HS 12/10/17 Reported Venlafaxine Hcl 37.5 Mg Tablet 37.5 Mg PO TID 12/10/17 Reported Temazepam 15 Mg Capsule 15 Mg PO HS PRN 12/10/17 Reported Trazodone Hcl 50 Mg Tablet 50 Mg PO HS 12/10/17 Reported Isosorbide Dinitrate 20 Mg Tablet 20 Mg PO DAILY 12/10/17 Reported Plavix (Clopidogrel Bisulfate) 75 Mg Tablet 75 Mg PO DAILY 12/10/17 Reported Atorvastatin Calcium 40 Mg Tablet 40 Mg PO HS 12/10/17 Reported Tramadol Hcl 50 Mg Tablet 50 Mg PO Q6HRS PRN 12/10/17 Reported Gabapentin 100 Mg Capsule 100 Mg PO TID 12/10/17 Reported Carvedilol 3.125 Mg Tablet 3.125 Mg PO BIDWMEALS 12/10/17 Reported NITROGLYCERIN SubLingual (Nitroglycerin) 0.4 Mg Tab.subl 1 Tab SL UD 11/15/17 Reported Lantus Solostar (Insulin Glargine,Hum.rec.anlog) 100 Unit/1 Ml Insuln.pen 40 Unit SQ Q12HR 11/15/17 Reported Albuterol Sulfate Neb Soln (Albuterol Sulfate) 2.5 Mg/3 Ml Vial.neb 1 Vial NEB QID 11/15/17 Reported Humalog (Insulin Lispro) 100 Unit/1 Ml Cartridge 0 SQ Q6HRS 11/15/17 Reported Impression . 1. Acute on chronic respiratory failure from dislodgement of the tracheostomy tube and Iatrogenic reinsertion of tracheostomy tube in the mediastinum with subsequent removal. 2. Bilateral pneumothorax, mostly on the left side and a very tiny one on the right side along with pneumomediastinum and subcutaneous emphysema related to above complication.resolved with chest tube 3. Underlying chronic obstructive pulmonary disease with chronic respiratory failure. 4. Morbid obesity. 5. Dyslipidemia. 6. Gastroesophageal reflux disease. Plan . 1. cxr reviewed, no ptx, s/p ct, removed 05/04, will do cxr in am 2. trach site care 3. ABG stable 4. avoid oversedation. 5. bronchodilators. 6. protonix Lovenox for prophylaxis. 7. elevate hob d/w DR MAHARAJ, rn, pt LIYAH MCLEAN MD May 05, 2018 09:45
[2018-05-05] MEDS: POLYETHYLENE GLYCOL 3350 17 GM PACKET. PO SCH (10:09)
[2018-05-05] MEDS: ENOXAPARIN 40 MG/0.4 ML SYRINGE. SQ SCH ×2 (10:09→21:05)
[2018-05-05] MEDS: PHENOL ORAL SPRAY 177ML BOTTLE. PO PRN (10:10)
[2018-05-05] MEDS: ISOSORBIDE DINITRATE 10 MG TABLET. PO SCH (10:16)
[2018-05-05] MEDS: CARVEDILOL 3.125 MG TABLET. PO SCH ×2 (10:17→17:40)
[2018-05-05] MEDS: GABAPENTIN 100 MG CAPSULE. PO SCH ×3 (10:18→20:50)
[2018-05-05] MEDS: DOCUSATE SODIUM 100 MG CAPSULE. PO SCH (10:18)
[2018-05-05] MEDS: CLOPIDOGREL BISULFATE 75 MG TABLET PO SCH (10:18)
[2018-05-05] MEDS: VENLAFAXINE 75 MG TABLET. PO SCH ×3 (10:19→20:50)
[2018-05-05] MEDS: traMADol 50 MG TABLET PO PRN ×2 (10:27→17:39)
[2018-05-05] MEDS: NYSTATIN 100,000 UNIT/GM TOPICAL CREAM 15GM TUBE. TP SCH ×2 (10:28→21:05)
[2018-05-05] MEDS: TRIAMCINOLONE ACETONIDE 0.1% TOPICAL CREAM 15GM TUBE. TP SCH ×2 (10:28→21:05)
[2018-05-05] MEDS: IV NORMAL SALINE 1000ML BAG 1,000 ML IV SCH (10:55)
[2018-05-05] MEDS: INSULIN GLARGINE 300 UNITS/3 ML INSULN.PEN. SQ SCH ×2 (10:57→20:52)
[2018-05-05] MEDS: INSULIN LISPRO 300 UNITS/3 ML INSULN.PEN. SQ SCH ×3 (10:58→17:00)
[2018-05-05 11:00] VITALS: BP 103/50
[2018-05-05 15:00] VITALS: BP 123/49
--- NOTE | 2018-05-05 15:49 | PN ---
DATE: 05/05/2018 SUBJECTIVE: The patient is extremely restless, agitated, attempted to get out of bed twice last night, and she is constantly asking for help, banging on the bed. Her left lung has completely expanded and chest tube was clamped and removed yesterday. PHYSICAL EXAMINATION: GENERAL: When I examined her today, after adjusting her position in the bed she looked well and was clearly in no apparent respiratory distress. No pallor, jaundice, cyanosis, or thyromegaly. No jugular venous distension. No limb edema. VITAL SIGNS: Her heart rate was 85, blood pressure was 125/60, temperature was 98.3, respiratory rate was 18 and oxygen saturation was 97% on 2 liters of oxygen. HEAD, EYES, EARS, NOSE AND THROAT: Showed normocephalic, atraumatic. NECK: Supple with tracheostomy tube site covered with dressing. HEART: Showed normal first and second heart sounds with no gallop, rub or murmur. CHEST: Clear to auscultation. No crepitation or rhonchi. ABDOMEN: Distended, soft, nontender. No guarding or rigidity. No organomegaly. All hernial orifices intact. Bowel sounds normal. NEUROLOGIC: She was awake, alert, responding appropriately. All cranial nerves intact. She moves upper extremities to much good extent than lower extremities. She is mostly bed bound. INS AND OUTS: Her intake over the last 24 hours was 750, output was 1250. LABORATORY DATA: As of yesterday, serum sodium was 134, potassium 4.7, chloride 102, bicarbonate 25, anion gap of 7, BUN 28, creatinine 1.2, her glucose 157, and calcium was 9.5. White cell count was 7800, hemoglobin 10, hematocrit 30, MCV 95, and platelet count 346,000. ASSESSMENT: 1. Acute hypoxic hypercapnic respiratory failure secondary to dislodgement of her tracheostomy tube, resolved. 2. Iatrogenic pneumomediastinum and pneumothorax, status post left chest tube placement. Her lungs have completely expanded. Chest tube was clamped and removed yesterday. 3. Chronic obstructive pulmonary disease. 4. Morbid obesity. 5. Hyperlipidemia. 6. Gastroesophageal reflux disease. 7. Recent cardiac arrest with anoxic encephalopathy. 8. The patient is delirious with marked restlessness, agitation, attempting to get out of the bed twice last night and banging of the head constantly asking for help. PLAN: My plan is to discontinue the IV fluid, continue with the nutritional support through her feeding tube. Apparently, she was evaluated by the speech therapist and who recommended that she should be n.p.o., although she was on mechanically soft diet, nectar thickened liquid when she was at the [facility]. JAIR MAHARAJ MD DR: MONTSERRAT/brennon JOB#: [id number] / [id number]
[2018-05-05 19:00] VITALS: BP 114/33
[2018-05-05] MEDS: traZODone 50 MG TABLET. PO SCH (20:50)
[2018-05-05] MEDS: ATORVASTATIN CALCIUM 40 MG TABLET. PO SCH (20:50)
[2018-05-05] MEDS: ZOLPIDEM 5 MG TABLET. PO SCH (20:50)
[2018-05-05] MEDS: QUEtiapine 25 MG TABLET. PO SCH (20:50)
[2018-05-06 03:00] VITALS: BP 140/63
[2018-05-06] MEDS: guaiFENesin/CODEINE 100mg/10mg 5 ML LIQUID PO PRN (03:33)
[2018-05-06] MEDS: ALBUTEROL SULFATE 2.5 MG/3 ML NEBU. NEB PRN (03:56)
[2018-05-06 04:48] LABS: ALBUMIN 2.7 g/dL (3.4-5.0); ALBUMIN/GLOBULIN RATIO 0.7 (1.0-1.7); CALCIUM 9.7 mg/dL (8.5-10.1); CREATININE 1.3 mg/dL (0.6-1.0); GFR 40.4; POTASSIUM 4.5 mmol/L (3.5-5.1); TOTAL BILIRUBIN 0.4 mg/dL (0.2-1.0); TOTAL PROTEIN 6.7 g/dL (6.4-8.2)
[2018-05-06] MEDS: OLANZapine 2.5 MG TABLET PO PRN ×2 (04:59→17:18)
[2018-05-06] MEDS: traMADol 50 MG TABLET PO PRN ×2 (04:59→12:30)
[2018-05-06] MEDS: PANTOPRAZOLE 40 MG TABLET.DR. PO SCH (04:59)
[2018-05-06 07:00] VITALS: BP 125/61
[2018-05-06] MEDS: IPRATRPIUM/ALBUTEROL 0.5/2.5MG 3 ML NEBU. NEB SCH ×4 (08:16→19:21)
--- NOTE | 2018-05-06 09:07 | RAD ---
EXAM:PORTABLE CHEST 1V DATE: 05/06/2018 8:24 AM CLINICAL INDICATION: short of breath COMPARISON: 05/04/2018 FINDINGS: The heart is mildly enlarged. Mediastinal and hilar contours are stable. Trace right pleural effusion. No definite pneumothorax. Patchy opacities bilateral lung bases likely atelectasis. Bilateral glenohumeral joint degenerative change, advanced on the right. IMPRESSION: 1. Patchy opacities bilateral bases likely atelectasis. 2. Trace right pleural effusion. Electronically signed by: Morgan Enrique MD (05/06/2018 9:04 AM) [facility]
[2018-05-06] MEDS: CLOPIDOGREL BISULFATE 75 MG TABLET PO SCH (09:13)
[2018-05-06] MEDS: POLYETHYLENE GLYCOL 3350 17 GM PACKET. PO SCH (09:13)
[2018-05-06] MEDS: LORazepam 0.5 MG TABLET PO PRN ×3 (09:14→18:55)
[2018-05-06] MEDS: DOCUSATE SODIUM 100 MG CAPSULE. PO SCH (09:14)
[2018-05-06] MEDS: GABAPENTIN 100 MG CAPSULE. PO SCH ×3 (09:14→21:03)
[2018-05-06] MEDS: CARVEDILOL 3.125 MG TABLET. PO SCH ×2 (09:14→17:18)
[2018-05-06] MEDS: VENLAFAXINE 75 MG TABLET. PO SCH ×3 (09:14→21:03)
[2018-05-06] MEDS: ISOSORBIDE DINITRATE 10 MG TABLET. PO SCH (09:14)
[2018-05-06] MEDS: NYSTATIN 100,000 UNIT/GM TOPICAL CREAM 15GM TUBE. TP SCH ×2 (09:15→21:08)
[2018-05-06] MEDS: TRIAMCINOLONE ACETONIDE 0.1% TOPICAL CREAM 15GM TUBE. TP SCH ×2 (09:15→21:08)
[2018-05-06] MEDS: ENOXAPARIN 40 MG/0.4 ML SYRINGE. SQ SCH ×2 (09:15→21:04)
[2018-05-06] MEDS: INSULIN LISPRO 300 UNITS/3 ML INSULN.PEN. SQ SCH ×3 (10:02→17:25)
[2018-05-06] MEDS: INSULIN GLARGINE 300 UNITS/3 ML INSULN.PEN. SQ SCH ×2 (10:03→21:06)
[2018-05-06 11:00] VITALS: BP 154/56
--- NOTE | 2018-05-06 13:19 | PDOC ---
PULMONARY PROGRESS NOTES Subjective on 02, sob better, restless Vitals Vital Signs Date Time Temp Pulse Resp B/P (MAP) Pulse Ox O2 Delivery O2 Flow Rate FiO2 05/06/18 12:30 98 Nasal Cannula 2.0 05/06/18 09:14 75 125/61 05/06/18 07:00 97.9 16 97.9 General: Alert, No acute distress HEENT: Other (nc at perrl nose throat clear, dressing on trach site) Lungs: Clear Cardiovascular: S1 Abdomen: Soft, Non-tender Neuro Exam: Alert Extremities: Other (TRACE EDEMA) Skin: Warm Labs Laboratory Tests Test 05/04/18 15:39 05/04/18 20:26 05/04/18 20:33 05/04/18 21:13 Glucose (Fingerstick) 82 mg/dL (70-99) 51 mg/dL (70-99) 67 mg/dL (70-99) 90 mg/dL (70-99) Test 05/05/18 08:05 05/05/18 12:17 05/05/18 17:36 05/05/18 20:44 Glucose (Fingerstick) 160 mg/dL (70-99) 134 mg/dL (70-99) 75 mg/dL (70-99) 104 mg/dL (70-99) Test 05/06/18 03:55 05/06/18 08:02 05/06/18 12:17 Sodium Level 138 mmol/L (136-145) Potassium Level 4.5 mmol/L (3.5-5.1) Chloride Level 102 mmol/L (98-107) Carbon Dioxide Level 33 mmol/L (21-32) Anion Gap 3 (6-14) Blood Urea Nitrogen 27 mg/dL (7-20) Creatinine 1.3 mg/dL (0.6-1.0) Estimated GFR (Cockcroft-Gault) 40.4 BUN/Creatinine Ratio 21 (6-20) Glucose Level 140 mg/dL (70-99) Calcium Level 9.7 mg/dL (8.5-10.1) Total Bilirubin 0.4 mg/dL (0.2-1.0) Aspartate Amino Transf (AST/SGOT) 15 U/L (15-37) Alanine Aminotransferase (ALT/SGPT) 14 U/L (14-59) Alkaline Phosphatase 113 U/L (46-116) Total Protein 6.7 g/dL (6.4-8.2) Albumin 2.7 g/dL (3.4-5.0) Albumin/Globulin Ratio 0.7 (1.0-1.7) Glucose (Fingerstick) 188 mg/dL (70-99) 188 mg/dL (70-99) Laboratory Tests Test 05/05/18 17:36 05/05/18 20:44 05/06/18 03:55 05/06/18 08:02 Glucose (Fingerstick) 75 mg/dL (70-99) 104 mg/dL (70-99) 188 mg/dL (70-99) Sodium Level 138 mmol/L (136-145) Potassium Level 4.5 mmol/L (3.5-5.1) Chloride Level 102 mmol/L (98-107) Carbon Dioxide Level 33 mmol/L (21-32) Anion Gap 3 (6-14) Blood Urea Nitrogen 27 mg/dL (7-20) Creatinine 1.3 mg/dL (0.6-1.0) Estimated GFR (Cockcroft-Gault) 40.4 BUN/Creatinine Ratio 21 (6-20) Glucose Level 140 mg/dL (70-99) Calcium Level 9.7 mg/dL (8.5-10.1) Total Bilirubin 0.4 mg/dL (0.2-1.0) Aspartate Amino Transf (AST/SGOT) 15 U/L (15-37) Alanine Aminotransferase (ALT/SGPT) 14 U/L (14-59) Alkaline Phosphatase 113 U/L (46-116) Total Protein 6.7 g/dL (6.4-8.2) Albumin 2.7 g/dL (3.4-5.0) Albumin/Globulin Ratio 0.7 (1.0-1.7) Test 05/06/18 12:17 Glucose (Fingerstick) 188 mg/dL (70-99) Medications Active Scripts Medications Dose Route/Sig Max Daily Dose Days Date Category Voltaren (Diclofenac Sodium) 100 Gm Gel..gram. 1 Gm TP QID PRN 05/01/18 Reported Venlafaxine Hcl 75 Mg Tablet 1 Tab PO DAILY 05/01/18 Reported Tramadol Hcl 50 Mg Tablet 50 Mg PO DAILY PRN 05/01/18 Reported Seroquel (Quetiapine Fumarate) 25 Mg Tablet 1 Tab PO QHS 05/01/18 Reported Prilosec Otc (Omeprazole Magnesium) 20 Mg Tablet.dr 1 Tab PO DAILY 05/01/18 Reported Nystatin-Triamcinolone Cream (Nystatin/Triamcin) 15 Gm Cream..g. 1 Cresencio TP BID 05/01/18 Reported Nitroglycerin 0.3 Mg Tab.subl 0.3 Mg SL 05/01/18 Reported Miralax (Polyethylene Glycol 3350) 17 Gm Powd.pack 1 Packet PO DAILY 05/01/18 Reported Miconazole 7 (Miconazole Nitrate) 45 Gm Cream.appl 45 Gm VG BID 05/01/18 Reported Lorazepam 0.5 Mg Tablet 1 Tab PO Q4HRS PRN 05/01/18 Reported Lantus Solostar (Insulin Glargine,Hum.rec.anlog) 100 Unit/1 Ml Insuln.pen 40 Unit SQ BID 05/01/18 Reported Isosorbide Dinitrate 20 Mg Tablet 20 Mg PO DAILY 05/01/18 Reported Guaifenesin Ac Cough Syrup (Guaifenesin/Codeine Phosphate) 473 Ml Liquid 5 Ml PO Q4HRS 05/01/18 Reported Gabapentin 100 Mg Capsule 100 Mg PO TID 05/01/18 Reported Docusate Sodium 100 Mg Capsule 1 Ea PEG DAILY 05/01/18 Reported Clopidogrel (Clopidogrel Bisulfate) 75 Mg Tablet 1 Tab PO DAILY 05/01/18 Reported Carvedilol 3.125 Mg Tablet 1 Tab PO BID 05/01/18 Reported Atorvastatin Calcium 40 Mg Tablet 1 Tab PO DAILY 05/01/18 Reported Ambien Cr (Zolpidem Tartrate) 6.25 Mg Tab.mphase 1 Tab PO QHS 05/01/18 Reported Acetaminophen 325 Mg/10.15 Ml Solution 650 Mg PEG 05/01/18 Reported Macrobid 100 Mg Capsule (Nitrofurantoin Monohyd/M-Cryst) 100 Mg Capsule 1 Cap PO BID 04/07/18 Rx Levaquin (Levofloxacin) 500 Mg Tablet 750 Mg IV ONCE 12/10/17 Reported Seroquel (Quetiapine Fumarate) 25 Mg Tablet 25 Mg PO HS 12/10/17 Reported Venlafaxine Hcl 37.5 Mg Tablet 37.5 Mg PO TID 12/10/17 Reported Temazepam 15 Mg Capsule 15 Mg PO HS PRN 12/10/17 Reported Trazodone Hcl 50 Mg Tablet 50 Mg PO HS 12/10/17 Reported Isosorbide Dinitrate 20 Mg Tablet 20 Mg PO DAILY 12/10/17 Reported Plavix (Clopidogrel Bisulfate) 75 Mg Tablet 75 Mg PO DAILY 12/10/17 Reported Atorvastatin Calcium 40 Mg Tablet 40 Mg PO HS 12/10/17 Reported Tramadol Hcl 50 Mg Tablet 50 Mg PO Q6HRS PRN 12/10/17 Reported Gabapentin 100 Mg Capsule 100 Mg PO TID 12/10/17 Reported Carvedilol 3.125 Mg Tablet 3.125 Mg PO BIDWMEALS 12/10/17 Reported NITROGLYCERIN SubLingual (Nitroglycerin) 0.4 Mg Tab.subl 1 Tab SL UD 11/15/17 Reported Lantus Solostar (Insulin Glargine,Hum.rec.anlog) 100 Unit/1 Ml Insuln.pen 40 Unit SQ Q12HR 11/15/17 Reported Albuterol Sulfate Neb Soln (Albuterol Sulfate) 2.5 Mg/3 Ml Vial.neb 1 Vial NEB QID 11/15/17 Reported Humalog (Insulin Lispro) 100 Unit/1 Ml Cartridge 0 SQ Q6HRS 11/15/17 Reported Impression . 1. Acute on chronic respiratory failure from dislodgement of the tracheostomy tube and Iatrogenic reinsertion of tracheostomy tube in the mediastinum with subsequent removal. 2. Bilateral pneumothorax, mostly on the left side and a very tiny one on the right side along with pneumomediastinum and subcutaneous emphysema related to above complication.resolved with chest tube 3. Underlying chronic obstructive pulmonary disease with chronic respiratory failure. 4. Morbid obesity. 5. Dyslipidemia. 6. Gastroesophageal reflux disease. Plan . 1. cxr reviewed, no ptx, s/p ct, removed 05/04, cxr 05/06 with no recurrence of PTX 2. trach site care 3. ABG stable 4. avoid oversedation. 5. bronchodilators. 6. protonix Lovenox for prophylaxis. 7. elevate hob dc plans per ANGELA HERRERA MD May 06, 2018 13:19
--- NOTE | 2018-05-06 13:36 | PN ---
DATE: 05/06/2018 SUBJECTIVE: The patient is resting, slightly propped up in bed, in no apparent distress. She is awake, alert. On questioning her, she denied any complaint. The nursing staff denied any complaint, stated that she had an uneventful night. Her chest x-ray yesterday showed no evidence of pneumothorax, status post left pleural drain removal. She is scheduled to be seen by speech therapy for video swallowing evaluation. She continued to do well without the tracheostomy tube, maintaining her oxygen saturations at 98% on 2 liters of oxygen. OBJECTIVE: GENERAL: When I examined her this morning, she looked pale, but no jaundice or cyanosis. No lymphadenopathy or thyromegaly. No jugular venous distension. No lower limb edema. VITAL SIGNS: Her heart rate was 75, blood pressure 125/61, temperature was 97.9, respiratory rate was 16, and oxygen saturation was 98% on 2 liters of oxygen by nasal cannula. HEAD, EYES, EARS, NOSE AND THROAT: Normocephalic, atraumatic. NECK: Supple with tracheostomy tube site covered with dressing. HEART: Showed normal first and second heart sounds with no gallop, rub or murmur. CHEST: Clear to auscultation. No crepitation or rhonchi. ABDOMEN: Distended, soft, nontender. No guarding or rigidity. No organomegaly. Hernial orifices intact. Bowel sounds normal. She has a gastrostomy tube in place. NEUROLOGIC: She is awake, alert, responding appropriately. All cranial nerves are intact. She moves upper extremities to much greater extent than lower extremities. She is mostly bedbound, chair bound. Her intake over the last 24 hours was 1350, output was 1000. LABORATORY DATA: As of this morning showed a serum sodium of 138, potassium 4.5, chloride 102, bicarbonate 33, anion gap of 3, BUN 27, creatinine 1.3, estimated GFR was 40 mL per minute. Her glucose 140, calcium was 9.7. Total bilirubin, AST, ALT, alkaline phosphatase were normal. Total protein 6.7, albumin 2.7. Her most recent white cell count was 7800, hemoglobin 10, hematocrit 30, MCV 95, and platelet count 346,000. ASSESSMENT: 1. Acute hypoxic hypercapnic respiratory failure secondary to dislodgement of the tracheostomy tube, resolved. 2. Iatrogenic pneumomediastinum and pneumothorax, status post left chest tube placement. Her lungs are completely expanded. Chest tube was clamped and removed. 3. Chronic obstructive pulmonary disease. 4. Morbid obesity. 5. Hyperlipidemia. 6. Gastroesophageal reflux disease. 7. Recent cardiac arrest with hypoxic encephalopathy. 8. The patient is delirious with marked restlessness, agitation, attempting to get out of the bed, has responded very well to Zyprexa. PLAN: My plan is to continue with nutritional support. Continue with oxygen supplementation. Continue with physical and occupational therapy. Await the result of the speech therapist evaluation as she used to be on a mechanical soft diet with nectar thickened liquid when she was at the skilled nursing. JAIR MAHARAJ MD DR: MONTSERRAT/brennon JOB#: [id number] / [id number]
[2018-05-06 15:00] VITALS: BP 124/55
[2018-05-06 19:00] VITALS: BP 110/41
[2018-05-06] MEDS: ZOLPIDEM 5 MG TABLET. PO SCH (21:03)
[2018-05-06] MEDS: ATORVASTATIN CALCIUM 40 MG TABLET. PO SCH (21:03)
[2018-05-06] MEDS: traZODone 50 MG TABLET. PO SCH (21:03)
[2018-05-06] MEDS: QUEtiapine 25 MG TABLET. PO SCH (21:03)
[2018-05-06 23:00] VITALS: BP 100/53
[2018-05-07] MEDS: traMADol 50 MG TABLET PO PRN ×3 (01:49→17:38)
[2018-05-07] MEDS: LORazepam 0.5 MG TABLET PO PRN ×3 (01:49→17:38)
[2018-05-07 03:00] VITALS: BP 147/59
[2018-05-07 04:26] LABS: HEMATOCRIT 26.7 % (36.0-47.0); HEMOGLOBIN 9.2 g/dL (12.0-15.5); RED BLOOD COUNT 2.85 x10^6/uL (3.50-5.40); RED CELL DISTRIBUTION WIDTH 15.6 % (11.5-14.5); WHITE BLOOD COUNT 9.6 x10^3/uL (4.0-11.0)
[2018-05-07 04:41] LABS: CALCIUM 9.6 mg/dL (8.5-10.1); CREATININE 1.3 mg/dL (0.6-1.0); GFR 40.4; POTASSIUM 4.2 mmol/L (3.5-5.1)
[2018-05-07 07:00] VITALS: BP 130/71
[2018-05-07] MEDS: PANTOPRAZOLE 40 MG TABLET.DR. PO SCH (07:30)
[2018-05-07] MEDS: IPRATRPIUM/ALBUTEROL 0.5/2.5MG 3 ML NEBU. NEB SCH ×4 (07:52→20:00)
[2018-05-07] MEDS: ENOXAPARIN 40 MG/0.4 ML SYRINGE. SQ SCH ×2 (08:26→19:37)
[2018-05-07] MEDS: POLYETHYLENE GLYCOL 3350 17 GM PACKET. PO SCH (08:26)
[2018-05-07] MEDS: VENLAFAXINE 75 MG TABLET. PO SCH ×3 (08:27→19:37)
[2018-05-07] MEDS: ISOSORBIDE DINITRATE 10 MG TABLET. PO SCH (08:28)
[2018-05-07] MEDS: CARVEDILOL 3.125 MG TABLET. PO SCH ×2 (08:29→17:38)
[2018-05-07] MEDS: TRIAMCINOLONE ACETONIDE 0.1% TOPICAL CREAM 15GM TUBE. TP SCH ×2 (08:30→19:51)
[2018-05-07] MEDS: GABAPENTIN 100 MG CAPSULE. PO SCH ×3 (08:30→19:37)
[2018-05-07] MEDS: NYSTATIN 100,000 UNIT/GM TOPICAL CREAM 15GM TUBE. TP SCH ×2 (08:30→19:51)
[2018-05-07] MEDS: DOCUSATE SODIUM 100 MG CAPSULE. PO SCH (08:30)
[2018-05-07] MEDS: CLOPIDOGREL BISULFATE 75 MG TABLET PO SCH (08:30)
[2018-05-07] MEDS: INSULIN LISPRO 300 UNITS/3 ML INSULN.PEN. SQ SCH ×3 (08:55→17:41)
[2018-05-07] MEDS: INSULIN GLARGINE 300 UNITS/3 ML INSULN.PEN. SQ SCH ×2 (08:56→19:39)
[2018-05-07 10:08] VITALS: BP 127/76
[2018-05-07 10:51] LABS: BASE EXCESS COOX 3 mmol/L (-3-3); HCO3 COOX 29 mmol/L (21-28); METHEMOGLOBIN 0.5 % (0.0-1.9); OXYHEMOGLOBIN 94.9 %; PCO2 COOX 53 mmHg (35-46); PO2 COOX 88 mmHg (65-108); SAT O2 COOX 96 % (92-99)
--- NOTE | 2018-05-07 11:50 | EKG ---
[facility] [address] [place] [address] Test Date: 2018-05-07 Test Time: 11:44:30 Pat Name: APOLINAR MARQUIS Department: Room: 436 1 Gender: F [employer]ist: EMILIANA : [id number] Requested By: JAIR MAHARAJ Order Number: [id number] Reading MD: Earl Aldrich MD Measurements Intervals [place] Rate: 69 P: 47 MS: 150 QRS: -11 QRSD: 100 T: 56 QT: 394 QTc: 424 Interpretive Statements SINUS RHYTHM LEFTWARD AXIS Electronically Signed On 05-09-2018 15:19:47 CDT by Earl Aldrich MD
--- NOTE | 2018-05-07 12:13 | PDOC ---
PULMONARY PROGRESS NOTES Subjective sleepy, received ativan Vitals Vital Signs Date Time Temp Pulse Resp B/P (MAP) Pulse Ox O2 Delivery O2 Flow Rate FiO2 05/07/18 11:40 99 Nasal Cannula 2.0 05/07/18 10:08 96.4 71 18 127/76 (93) 96.4 General: Lethargic HEENT: Other (nc at perrl nose throat clear, dressing on trach site) Lungs: Clear Cardiovascular: S1 Abdomen: Soft, Non-tender Extremities: Other (TRACE EDEMA) Skin: Warm Labs Laboratory Tests Test 05/05/18 12:17 05/05/18 17:36 05/05/18 20:44 05/06/18 03:55 Glucose (Fingerstick) 134 mg/dL (70-99) 75 mg/dL (70-99) 104 mg/dL (70-99) Sodium Level 138 mmol/L (136-145) Potassium Level 4.5 mmol/L (3.5-5.1) Chloride Level 102 mmol/L (98-107) Carbon Dioxide Level 33 mmol/L (21-32) Anion Gap 3 (6-14) Blood Urea Nitrogen 27 mg/dL (7-20) Creatinine 1.3 mg/dL (0.6-1.0) Estimated GFR (Cockcroft-Gault) 40.4 BUN/Creatinine Ratio 21 (6-20) Glucose Level 140 mg/dL (70-99) Calcium Level 9.7 mg/dL (8.5-10.1) Total Bilirubin 0.4 mg/dL (0.2-1.0) Aspartate Amino Transf (AST/SGOT) 15 U/L (15-37) Alanine Aminotransferase (ALT/SGPT) 14 U/L (14-59) Alkaline Phosphatase 113 U/L (46-116) Total Protein 6.7 g/dL (6.4-8.2) Albumin 2.7 g/dL (3.4-5.0) Albumin/Globulin Ratio 0.7 (1.0-1.7) Test 05/06/18 08:02 05/06/18 12:17 05/06/18 15:55 05/06/18 20:20 Glucose (Fingerstick) 188 mg/dL (70-99) 188 mg/dL (70-99) 170 mg/dL (70-99) 157 mg/dL (70-99) Test 05/07/18 03:50 05/07/18 07:51 05/07/18 10:45 05/07/18 11:44 White Blood Count 9.6 x10^3/uL (4.0-11.0) Red Blood Count 2.85 x10^6/uL (3.50-5.40) Hemoglobin 9.2 g/dL (12.0-15.5) Hematocrit 26.7 % (36.0-47.0) Mean Corpuscular Volume 94 fL (79-100) Mean Corpuscular Hemoglobin 32 pg (25-35) Mean Corpuscular Hemoglobin Concent 34 g/dL (31-37) Red Cell Distribution Width 15.6 % (11.5-14.5) Platelet Count 335 x10^3/uL (140-400) Sodium Level 136 mmol/L (136-145) Potassium Level 4.2 mmol/L (3.5-5.1) Chloride Level 101 mmol/L (98-107) Carbon Dioxide Level 34 mmol/L (21-32) Anion Gap 1 (6-14) Blood Urea Nitrogen 31 mg/dL (7-20) Creatinine 1.3 mg/dL (0.6-1.0) Estimated GFR (Cockcroft-Gault) 40.4 Glucose Level 210 mg/dL (70-99) Calcium Level 9.6 mg/dL (8.5-10.1) Glucose (Fingerstick) 227 mg/dL (70-99) 206 mg/dL (70-99) O2 Saturation 96 % (92-99) Arterial Blood pH 7.36 (7.35-7.45) Arterial Blood pCO2 at Patient Temp 53 mmHg (35-46) Arterial Blood pO2 at Patient Temp 88 mmHg (65-108) Arterial Blood HCO3 29 mmol/L (21-28) Arterial Blood Base Excess 3 mmol/L (-3-3) Oxyhemoglobin 94.9 % Methemoglobin 0.5 % (0.0-1.9) Carbon Monoxide, Quantitative 0.3 % (0.0-1.9) FiO2 28 Laboratory Tests Test 05/06/18 12:17 05/06/18 15:55 05/06/18 20:20 05/07/18 03:50 Glucose (Fingerstick) 188 mg/dL (70-99) 170 mg/dL (70-99) 157 mg/dL (70-99) White Blood Count 9.6 x10^3/uL (4.0-11.0) Red Blood Count 2.85 x10^6/uL (3.50-5.40) Hemoglobin 9.2 g/dL (12.0-15.5) Hematocrit 26.7 % (36.0-47.0) Mean Corpuscular Volume 94 fL (79-100) Mean Corpuscular Hemoglobin 32 pg (25-35) Mean Corpuscular Hemoglobin Concent 34 g/dL (31-37) Red Cell Distribution Width 15.6 % (11.5-14.5) Platelet Count 335 x10^3/uL (140-400) Sodium Level 136 mmol/L (136-145) Potassium Level 4.2 mmol/L (3.5-5.1) Chloride Level 101 mmol/L (98-107) Carbon Dioxide Level 34 mmol/L (21-32) Anion Gap 1 (6-14) Blood Urea Nitrogen 31 mg/dL (7-20) Creatinine 1.3 mg/dL (0.6-1.0) Estimated GFR (Cockcroft-Gault) 40.4 Glucose Level 210 mg/dL (70-99) Calcium Level 9.6 mg/dL (8.5-10.1) Test 05/07/18 07:51 05/07/18 10:45 05/07/18 11:44 Glucose (Fingerstick) 227 mg/dL (70-99) 206 mg/dL (70-99) O2 Saturation 96 % (92-99) Arterial Blood pH 7.36 (7.35-7.45) Arterial Blood pCO2 at Patient Temp 53 mmHg (35-46) Arterial Blood pO2 at Patient Temp 88 mmHg (65-108) Arterial Blood HCO3 29 mmol/L (21-28) Arterial Blood Base Excess 3 mmol/L (-3-3) Oxyhemoglobin 94.9 % Methemoglobin 0.5 % (0.0-1.9) Carbon Monoxide, Quantitative 0.3 % (0.0-1.9) FiO2 28 Medications Active Scripts Medications Dose Route/Sig Max Daily Dose Days Date Category Voltaren (Diclofenac Sodium) 100 Gm Gel..gram. 1 Gm TP QID PRN 05/01/18 Reported Venlafaxine Hcl 75 Mg Tablet 1 Tab PO DAILY 05/01/18 Reported Tramadol Hcl 50 Mg Tablet 50 Mg PO DAILY PRN 05/01/18 Reported Seroquel (Quetiapine Fumarate) 25 Mg Tablet 1 Tab PO QHS 05/01/18 Reported Prilosec Otc (Omeprazole Magnesium) 20 Mg Tablet.dr 1 Tab PO DAILY 05/01/18 Reported Nystatin-Triamcinolone Cream (Nystatin/Triamcin) 15 Gm Cream..g. 1 Cresencio TP BID 05/01/18 Reported Nitroglycerin 0.3 Mg Tab.subl 0.3 Mg SL 05/01/18 Reported Miralax (Polyethylene Glycol 3350) 17 Gm Powd.pack 1 Packet PO DAILY 05/01/18 Reported Miconazole 7 (Miconazole Nitrate) 45 Gm Cream.appl 45 Gm VG BID 05/01/18 Reported Lorazepam 0.5 Mg Tablet 1 Tab PO Q4HRS PRN 05/01/18 Reported Lantus Solostar (Insulin Glargine,Hum.rec.anlog) 100 Unit/1 Ml Insuln.pen 40 Unit SQ BID 05/01/18 Reported Isosorbide Dinitrate 20 Mg Tablet 20 Mg PO DAILY 05/01/18 Reported Guaifenesin Ac Cough Syrup (Guaifenesin/Codeine Phosphate) 473 Ml Liquid 5 Ml PO Q4HRS 05/01/18 Reported Gabapentin 100 Mg Capsule 100 Mg PO TID 05/01/18 Reported Docusate Sodium 100 Mg Capsule 1 Ea PEG DAILY 05/01/18 Reported Clopidogrel (Clopidogrel Bisulfate) 75 Mg Tablet 1 Tab PO DAILY 05/01/18 Reported Carvedilol 3.125 Mg Tablet 1 Tab PO BID 05/01/18 Reported Atorvastatin Calcium 40 Mg Tablet 1 Tab PO DAILY 05/01/18 Reported Ambien Cr (Zolpidem Tartrate) 6.25 Mg Tab.mphase 1 Tab PO QHS 05/01/18 Reported Acetaminophen 325 Mg/10.15 Ml Solution 650 Mg PEG 05/01/18 Reported Macrobid 100 Mg Capsule (Nitrofurantoin Monohyd/M-Cryst) 100 Mg Capsule 1 Cap PO BID 04/07/18 Rx Levaquin (Levofloxacin) 500 Mg Tablet 750 Mg IV ONCE 12/10/17 Reported Seroquel (Quetiapine Fumarate) 25 Mg Tablet 25 Mg PO HS 12/10/17 Reported Venlafaxine Hcl 37.5 Mg Tablet 37.5 Mg PO TID 12/10/17 Reported Temazepam 15 Mg Capsule 15 Mg PO HS PRN 12/10/17 Reported Trazodone Hcl 50 Mg Tablet 50 Mg PO HS 12/10/17 Reported Isosorbide Dinitrate 20 Mg Tablet 20 Mg PO DAILY 12/10/17 Reported Plavix (Clopidogrel Bisulfate) 75 Mg Tablet 75 Mg PO DAILY 12/10/17 Reported Atorvastatin Calcium 40 Mg Tablet 40 Mg PO HS 12/10/17 Reported Tramadol Hcl 50 Mg Tablet 50 Mg PO Q6HRS PRN 12/10/17 Reported Gabapentin 100 Mg Capsule 100 Mg PO TID 12/10/17 Reported Carvedilol 3.125 Mg Tablet 3.125 Mg PO BIDWMEALS 12/10/17 Reported NITROGLYCERIN SubLingual (Nitroglycerin) 0.4 Mg Tab.subl 1 Tab SL UD 11/15/17 Reported Lantus Solostar (Insulin Glargine,Hum.rec.anlog) 100 Unit/1 Ml Insuln.pen 40 Unit SQ Q12HR 11/15/17 Reported Albuterol Sulfate Neb Soln (Albuterol Sulfate) 2.5 Mg/3 Ml Vial.neb 1 Vial NEB QID 11/15/17 Reported Humalog (Insulin Lispro) 100 Unit/1 Ml Cartridge 0 SQ Q6HRS 11/15/17 Reported Impression . 1. Acute on chronic respiratory failure from dislodgement of the tracheostomy tube and Iatrogenic reinsertion of tracheostomy tube in the mediastinum with subsequent removal. 2. Bilateral pneumothorax, mostly on the left side and a very tiny one on the right side along with pneumomediastinum and subcutaneous emphysema related to above complication.resolved with chest tube 3. Underlying chronic obstructive pulmonary disease with chronic respiratory failure. 4. Morbid obesity. 5. Dyslipidemia. 6. Gastroesophageal reflux disease. Plan . 1. cxr reviewed, no ptx, s/p ct, removed 05/04, cxr 05/06 with no recurrence of PTX 2. trach site care 3. ABG stable 4. avoid oversedation. 5. bronchodilators. 6. protonix Lovenox for prophylaxis. 7. elevate hob dc plans per DR MAHARAJ/ d/w with him. no further pulmonary rec. ANGELA ARRIOLA MD May 07, 2018 12:13
--- NOTE | 2018-05-07 13:42 | RAD ---
CT SOFT TISSUE NECK WO CONTRST Indication: S/P TREACH REMOVES DIFF. BREATHING
. Difficulty breathing after tracheostomy removal. Shortness of breath. Exposure: One or more of the following individualized dose reduction techniques were utilized for this examination: 1. Automated exposure control 2. Adjustment of the mA and/or kV according to patient size 3. Use of iterative reconstruction technique. Comparison: None are available. Contrast: None FINDINGS: Visualized sinuses: Clear Visualized orbits: Unremarkable Parotid glands: Unremarkable Submandibular glands: Slightly larger on the right. Airway: Patent and midline Parapharyngeal tissues: Symmetric and unremarkable Lymph nodes: No pathologic enlargement Thyroid: Slightly larger on the right Upper thorax: Lungs are clear Soft tissues: Unremarkable Mandible/maxilla: Unremarkable. Patient is missing some teeth. Cervical spine: Degenerative spondylosis Impression: No acute findings are identified. Electronically signed by: Juan Jose Martinez MD (05/07/2018 1:38 PM) [id number]
[2018-05-07 15:00] VITALS: BP 138/53
[2018-05-07] MEDS: guaiFENesin/CODEINE 100mg/10mg 5 ML LIQUID PO PRN ×2 (15:47→19:38)
--- NOTE | 2018-05-07 17:00 | RAD ---
EXAM: CT chest without IV contrast CLINICAL HISTORY: SHORTNESS OF AIR. History of tracheostomy removal COMPARISON: None. TECHNIQUE: CT of the chest without intravenous contrast. Axial coronal and sagittal reformatted images were generated. PQRS compliance Statement One or more of the following individualized dose reduction techniques were utilized for this study: 1. Automated exposure control 2. Adjustment of the mA and/or kV according to patient size 3. Use of iterative reconstruction technique FINDINGS: Lack of intravenous contrast limits evaluation of solid organs, vasculature, and lymph nodes. The heart is not enlarged. Coronary artery calcifications are seen. No pericardial effusion. There is pneumomediastinum, predominantly in the anterior mediastinum. No definite mediastinal or hilar lymphadenopathy by size criteria. No axillary lymphadenopathy. No pleural effusion or pneumothorax. Patchy and platelike opacities in the bilateral lung bases, favor atelectasis given associated volume loss. A 4 mm right upper lobe lung nodule (series 2 image 20) is seen. Debris/mucus is seen within the thoracic trachea. Dense atherosclerotic calcifications of the visualized abdominal aorta. Cholecystectomy clips are seen. Right hepatic lobe hypodense lesion is limited in evaluation given associated streak artifact. Gastrostomy tube is seen within the lumen of the stomach. Bones: Multilevel degenerative changes of the spine are seen. There is a sternal fracture with periosteal reaction/callus formation, subacute. Lucent lesion within the sternum with internal trabeculation, likely hemangioma. IMPRESSION: 1. Pneumomediastinum likely from known tracheostomy tube and recent removal. 2. Mild opacities in the lung bases predominantly likely subsegmental atelectasis given volume loss however early consolidative process is not entirely excluded. 3. Opacities within the thoracic trachea likely dried secretions/mucous. Electronically signed by: Morgan Enrique MD (05/07/2018 4:56 PM) [facility]
[2018-05-07] MEDS: ALBUTEROL SULFATE 2.5 MG/3 ML NEBU. NEB PRN (17:17)
[2018-05-07 19:00] VITALS: BP 91/67
[2018-05-07] MEDS: ZOLPIDEM 5 MG TABLET. PO SCH (19:37)
[2018-05-07] MEDS: ATORVASTATIN CALCIUM 40 MG TABLET. PO SCH (19:37)
[2018-05-07] MEDS: QUEtiapine 25 MG TABLET. PO SCH (19:38)
[2018-05-07] MEDS: traZODone 50 MG TABLET. PO SCH (19:38)
[2018-05-08] MEDS: ALBUTEROL SULFATE 2.5 MG/3 ML NEBU. NEB PRN (02:08)
[2018-05-08 03:00] VITALS: BP 127/50
[2018-05-08] MEDS: LORazepam 0.5 MG TABLET PO PRN (03:12)
[2018-05-08] MEDS: traMADol 50 MG TABLET PO PRN ×3 (03:13→15:58)
--- NOTE | 2018-05-08 04:44 | PN ---
DATE: 05/07/2018 SUBJECTIVE: The patient is resting slightly propped up in bed, very lethargic. She is complaining that she is having chest pain and not feeling well. PHYSICAL EXAMINATION: GENERAL: When I examined her, she was resting slightly propped up in bed, in no apparent respiratory distress. She was pale, not jaundiced, cyanosed. No thyromegaly. No jugular venous distension. No limb edema. VITAL SIGNS: Her heart rate was 71, blood pressure was 127/76, temperature was 96.4, respiratory rate was 18 and oxygen saturation was 97% on 2 liters of oxygen by nasal cannula. HEAD, EYES, EARS, NOSE AND THROAT: Showed normocephalic, atraumatic. NECK: Supple with tracheostomy tube site covered with dressing. HEART: Showed normal first and second heart sounds with no gallop, rub or murmur. CHEST: Clear to auscultation. No crepitation or rhonchi. ABDOMEN: Distended, soft, nontender. No guarding or rigidity. No organomegaly. All hernial orifices intact. Bowel sounds normal. NEUROLOGIC: She is lethargic, but arousable. All cranial nerves intact. She moves upper extremities to much good control. EXTREMITIES: She is mostly bedbound, chair bound. Her intake over the last 24 hours was 2050, output was 2450. LABORATORY WORK: As of this morning showed a white cell count of 9600, hemoglobin 9.2, hematocrit 27, MCV 94 and platelet count of 335,000. Serum sodium was 136, potassium 4.2, chloride 101, bicarbonate 34, anion gap of 1, BUN 31, creatinine 1.3, estimated GFR was 40 mL per minute. Her glucose was 110, calcium was 9.6. ASSESSMENT: 1. Acute hypoxic hypercapnic respiratory failure secondary to dislodgement of tracheostomy tube, resolved. 2. Iatrogenic pneumomediastinum and pneumothorax, status post left chest tube placement. Her lungs are completely expanded. Chest tube was clamped and removed. 3. Chronic obstructive pulmonary disease. 4. Morbid obesity. 5. Hyperlipidemia. 6. Gastroesophageal reflux disease. 7. Recent cardiac arrest with hypoxic encephalopathy. 8. The patient is delirious with marked rest agitation; however, she is excessively sedated. 9. She is complaining of chest pain and shortness of breath, although her vital signs are stable. I was planning to discharge her; however, I basically ordered a soft tissue of the neck without contrast, CT scan of the chest without contrast, ABGs and cardiac enzyme and we will decide further management accordingly. She apparently has failed her video swallowing evaluation and she will continue with her tube feeding through her gastrostomy tube for the time being. JAIR MAHARAJ MD DR: MONTSERRAT/brennon JOB#: [id number] / [id number]
[2018-05-08 07:00] VITALS: BP 119/45
[2018-05-08] MEDS: IPRATRPIUM/ALBUTEROL 0.5/2.5MG 3 ML NEBU. NEB SCH ×3 (07:54→15:41)
[2018-05-08] MEDS: CLOPIDOGREL BISULFATE 75 MG TABLET PO SCH (08:08)
[2018-05-08] MEDS: PHENOL ORAL SPRAY 177ML BOTTLE. PO PRN (08:08)
[2018-05-08] MEDS: guaiFENesin/CODEINE 100mg/10mg 5 ML LIQUID PO PRN (08:08)
[2018-05-08] MEDS: GABAPENTIN 100 MG CAPSULE. PO SCH ×2 (08:09→14:11)
[2018-05-08] MEDS: CARVEDILOL 3.125 MG TABLET. PO SCH ×2 (08:09→15:59)
[2018-05-08] MEDS: ISOSORBIDE DINITRATE 10 MG TABLET. PO SCH (08:10)
[2018-05-08] MEDS: PANTOPRAZOLE 40 MG TABLET.DR. PO SCH (08:10)
[2018-05-08] MEDS: NYSTATIN 100,000 UNIT/GM TOPICAL CREAM 15GM TUBE. TP SCH (08:11)
[2018-05-08] MEDS: ENOXAPARIN 40 MG/0.4 ML SYRINGE. SQ SCH (08:11)
[2018-05-08] MEDS: TRIAMCINOLONE ACETONIDE 0.1% TOPICAL CREAM 15GM TUBE. TP SCH (08:11)
[2018-05-08] MEDS: VENLAFAXINE 75 MG TABLET. PO SCH ×2 (08:15→14:11)
[2018-05-08] MEDS: INSULIN LISPRO 300 UNITS/3 ML INSULN.PEN. SQ SCH ×3 (08:50→17:00)
[2018-05-08] MEDS: INSULIN GLARGINE 300 UNITS/3 ML INSULN.PEN. SQ SCH (08:51)
[2018-05-08] MEDS: POLYETHYLENE GLYCOL 3350 17 GM PACKET. PO SCH (09:00)
[2018-05-08] MEDS: DOCUSATE SODIUM 100 MG CAPSULE. PO SCH (09:00)
[2018-05-08] MEDS: OLANZapine 2.5 MG TABLET PO PRN ×2 (09:40→15:59)
[2018-05-08 11:00] VITALS: BP 117/66
--- NOTE | 2018-05-08 13:31 | PDOC ---
PULMONARY PROGRESS NOTES Subjective awake, alert. no soa although she episodically complains of difficulty getting a breath in. She notes to me that in the past she was prescribed CPAP although states that she tested negative for sleep apnea. Vitals Vital Signs Date Time Temp Pulse Resp B/P (MAP) Pulse Ox O2 Delivery O2 Flow Rate FiO2 05/08/18 11:24 Nasal Cannula 1.0 05/08/18 11:00 98.6 80 18 117/66 (83) 95 98.6 General: Lethargic HEENT: Other (nc at perrl nose throat clear, dressing on trach site. Trach site inspected and clean without erythema and granulating in. No obvious airflow with forced inspiration. no stridor with forced inspiration.) Lungs: Clear Cardiovascular: S1 Abdomen: Soft, Non-tender Extremities: Other (TRACE EDEMA) Skin: Warm Labs Laboratory Tests Test 05/06/18 15:55 05/06/18 20:20 05/07/18 03:50 05/07/18 07:51 Glucose (Fingerstick) 170 mg/dL (70-99) 157 mg/dL (70-99) 227 mg/dL (70-99) White Blood Count 9.6 x10^3/uL (4.0-11.0) Red Blood Count 2.85 x10^6/uL (3.50-5.40) Hemoglobin 9.2 g/dL (12.0-15.5) Hematocrit 26.7 % (36.0-47.0) Mean Corpuscular Volume 94 fL (79-100) Mean Corpuscular Hemoglobin 32 pg (25-35) Mean Corpuscular Hemoglobin Concent 34 g/dL (31-37) Red Cell Distribution Width 15.6 % (11.5-14.5) Platelet Count 335 x10^3/uL (140-400) Sodium Level 136 mmol/L (136-145) Potassium Level 4.2 mmol/L (3.5-5.1) Chloride Level 101 mmol/L (98-107) Carbon Dioxide Level 34 mmol/L (21-32) Anion Gap 1 (6-14) Blood Urea Nitrogen 31 mg/dL (7-20) Creatinine 1.3 mg/dL (0.6-1.0) Estimated GFR (Cockcroft-Gault) 40.4 Glucose Level 210 mg/dL (70-99) Calcium Level 9.6 mg/dL (8.5-10.1) Test 05/07/18 10:45 05/07/18 11:44 05/07/18 17:10 05/07/18 19:38 O2 Saturation 96 % (92-99) Arterial Blood pH 7.36 (7.35-7.45) Arterial Blood pCO2 at Patient Temp 53 mmHg (35-46) Arterial Blood pO2 at Patient Temp 88 mmHg (65-108) Arterial Blood HCO3 29 mmol/L (21-28) Arterial Blood Base Excess 3 mmol/L (-3-3) Oxyhemoglobin 94.9 % Methemoglobin 0.5 % (0.0-1.9) Carbon Monoxide, Quantitative 0.3 % (0.0-1.9) FiO2 28 Glucose (Fingerstick) 206 mg/dL (70-99) 220 mg/dL (70-99) 242 mg/dL (70-99) Test 05/08/18 12:38 Glucose (Fingerstick) 176 mg/dL (70-99) Laboratory Tests Test 05/07/18 17:10 05/07/18 19:38 05/08/18 12:38 Glucose (Fingerstick) 220 mg/dL (70-99) 242 mg/dL (70-99) 176 mg/dL (70-99) Medications Active Scripts Medications Dose Route/Sig Max Daily Dose Days Date Category Voltaren (Diclofenac Sodium) 100 Gm Gel..gram. 1 Gm TP QID PRN 05/01/18 Reported Venlafaxine Hcl 75 Mg Tablet 1 Tab PO DAILY 05/01/18 Reported Tramadol Hcl 50 Mg Tablet 50 Mg PO DAILY PRN 05/01/18 Reported Seroquel (Quetiapine Fumarate) 25 Mg Tablet 1 Tab PO QHS 05/01/18 Reported Prilosec Otc (Omeprazole Magnesium) 20 Mg Tablet.dr 1 Tab PO DAILY 05/01/18 Reported Nystatin-Triamcinolone Cream (Nystatin/Triamcin) 15 Gm Cream..g. 1 Cresencio TP BID 05/01/18 Reported Nitroglycerin 0.3 Mg Tab.subl 0.3 Mg SL 05/01/18 Reported Miralax (Polyethylene Glycol 3350) 17 Gm Powd.pack 1 Packet PO DAILY 05/01/18 Reported Miconazole 7 (Miconazole Nitrate) 45 Gm Cream.appl 45 Gm VG BID 05/01/18 Reported Lorazepam 0.5 Mg Tablet 1 Tab PO Q4HRS PRN 05/01/18 Reported Lantus Solostar (Insulin Glargine,Hum.rec.anlog) 100 Unit/1 Ml Insuln.pen 40 Unit SQ BID 05/01/18 Reported Isosorbide Dinitrate 20 Mg Tablet 20 Mg PO DAILY 05/01/18 Reported Guaifenesin Ac Cough Syrup (Guaifenesin/Codeine Phosphate) 473 Ml Liquid 5 Ml PO Q4HRS 05/01/18 Reported Gabapentin 100 Mg Capsule 100 Mg PO TID 05/01/18 Reported Docusate Sodium 100 Mg Capsule 1 Ea PEG DAILY 05/01/18 Reported Clopidogrel (Clopidogrel Bisulfate) 75 Mg Tablet 1 Tab PO DAILY 05/01/18 Reported Carvedilol 3.125 Mg Tablet 1 Tab PO BID 05/01/18 Reported Atorvastatin Calcium 40 Mg Tablet 1 Tab PO DAILY 05/01/18 Reported Ambien Cr (Zolpidem Tartrate) 6.25 Mg Tab.mphase 1 Tab PO QHS 05/01/18 Reported Acetaminophen 325 Mg/10.15 Ml Solution 650 Mg PEG 05/01/18 Reported Macrobid 100 Mg Capsule (Nitrofurantoin Monohyd/M-Cryst) 100 Mg Capsule 1 Cap PO BID 04/07/18 Rx Levaquin (Levofloxacin) 500 Mg Tablet 750 Mg IV ONCE 12/10/17 Reported Seroquel (Quetiapine Fumarate) 25 Mg Tablet 25 Mg PO HS 12/10/17 Reported Venlafaxine Hcl 37.5 Mg Tablet 37.5 Mg PO TID 12/10/17 Reported Temazepam 15 Mg Capsule 15 Mg PO HS PRN 12/10/17 Reported Trazodone Hcl 50 Mg Tablet 50 Mg PO HS 12/10/17 Reported Isosorbide Dinitrate 20 Mg Tablet 20 Mg PO DAILY 12/10/17 Reported Plavix (Clopidogrel Bisulfate) 75 Mg Tablet 75 Mg PO DAILY 12/10/17 Reported Atorvastatin Calcium 40 Mg Tablet 40 Mg PO HS 12/10/17 Reported Tramadol Hcl 50 Mg Tablet 50 Mg PO Q6HRS PRN 12/10/17 Reported Gabapentin 100 Mg Capsule 100 Mg PO TID 12/10/17 Reported Carvedilol 3.125 Mg Tablet 3.125 Mg PO BIDWMEALS 12/10/17 Reported NITROGLYCERIN SubLingual (Nitroglycerin) 0.4 Mg Tab.subl 1 Tab SL UD 11/15/17 Reported Lantus Solostar (Insulin Glargine,Hum.rec.anlog) 100 Unit/1 Ml Insuln.pen 40 Unit SQ Q12HR 11/15/17 Reported Albuterol Sulfate Neb Soln (Albuterol Sulfate) 2.5 Mg/3 Ml Vial.neb 1 Vial NEB QID 11/15/17 Reported Humalog (Insulin Lispro) 100 Unit/1 Ml Cartridge 0 SQ Q6HRS 11/15/[address] 05/07 showed resolution of pneumothorax. she did have small pneumomediastinum. Impression . 1. Acute on chronic respiratory failure from dislodgement of the tracheostomy tube and Iatrogenic reinsertion of tracheostomy tube in the mediastinum with subsequent removal, resolved. 2. Bilateral pneumothorax, mostly on the left side and a very tiny one on the right side along with pneumomediastinum and subcutaneous emphysema related to above complication.resolved with chest tube, resolved 3. Underlying chronic obstructive pulmonary disease with chronic respiratory failure. 4.Pneumomediastinum secondary to described trauma. This should not cause any problem physiologically, and I expect it to resolve as the trach site heals. It does warrant follow up. 5. Morbid obesity, possible sleep apnea. The history of CPAP rx (not used) but no sleep apnea is unclear. I would recommend overnight oximetry screen as outpatient. If that is abnormal, she should have full sleep study.. 6. Dyslipidemia. 7. Gastroesophageal reflux disease. Plan . 1. cxr reviewed, no ptx, s/p ct, removed 05/04, cxr 05/06 with no recurrence of PTX 2. trach site care 3. ABG stable 4. avoid oversedation. 5. bronchodilators. 6. protonix Lovenox for prophylaxis. 7. elevate hob dc plans per DR MAHARAJ/ d/w with him. no further pulmonary rec. CHERYL PALACIOS MD May 08, 2018 13:31
[2018-05-08 15:00] VITALS: BP 116/52
[2018-05-08 15:59] VITALS: BP 116/52
== END 2018-05-08 20:15 | DRG 199 ==
LOC: ER 11:39 → 1 WEST ICU 11:51 → 4 NORTH 05-02 13:48
PROVIDERS: ADMIT Internal Medicine; ATTEND Internal Medicine
PROC: 0W9B30Z Drainage of Left Pleural Cavity with Drainage Device, Percutaneous Approach (ICD-10-PCS; principal; 2018-05-01)
DX: J93.9 Pneumothorax, unspecified (principal); J96.21 Acute and chronic respiratory failure with hypoxia; J96.22 Acute and chronic respiratory failure with hypercapnia; M79.7 Fibromyalgia; K21.9 Gastro-esophageal reflux disease without esophagitis; J44.9 Chronic obstructive pulmonary disease, unspecified; I10 Essential (primary) hypertension; E78.00 Pure hypercholesterolemia, unspecified; J98.2 Interstitial emphysema; E11.9 Type 2 diabetes mellitus without complications; F41.9 Anxiety disorder, unspecified; F32.9 Major depressive disorder, single episode, unspecified; G47.30 Sleep apnea, unspecified; E66.01 Morbid (severe) obesity due to excess calories; Z90.710 Acquired absence of both cervix and uterus; Z86.74 Personal history of sudden cardiac arrest; E78.5 Hyperlipidemia, unspecified; R41.89 Other symptoms and signs involving cognitive functions and awareness; R13.10 Dysphagia, unspecified; D64.9 Anemia, unspecified; Z82.49 Family history of ischemic heart disease and other diseases of the circulatory system; Z87.891 Personal history of nicotine dependence; Z93.0 Tracheostomy status; Z88.6 Allergy status to analgesic agent; Z88.1 Allergy status to other antibiotic agents
CPT/HCPCS: 31502; 32557; 36415; 36600; 70490; 71045; 71250; 80048; 80053; 82805; 82962; 83880; 84484; 85007; 85025; 85027; 87641; 93005; 94640; 94760; 96374; 96375; C1729; C1892; J1650; J1815; J2270; J2405; J3010; J7030; J7040; J7512; J7613; J7620; 92610; 99285-25